=== PATIENT | female | born 1970 | race Caucasian/White ===

== ENCOUNTER 2023-12-09 08:10 | Emergency (ER) | payer OTHER, SELFPAY ==
--- NOTE | ~2023-12-09 | XR_ITS ---
EXAMINATION: XR TIBIA AND FIBULA, RIGHT CLINICAL INFORMATION: Right lower leg injury and pain. COMPARISON: None available. TECHNIQUE: AP and lateral views of the right tibia and fibula were obtained. FINDINGS: There is normal alignment. No displaced fracture or dislocation. Joint spaces are maintained. Mild swelling of the anterior soft tissues. XR/XR tibia fibula RT 2V IMPRESSION: No acute bony abnormality.
[2023-12-09 08:23] VITALS: BP 143/98; PULSE 113; RESP 18; TEMP 36.4; O2SAT 98; BMI 51.6
--- NOTE | 2023-12-09 09:48 | ED_ITS ---
HPI - General Adult General Chief complaint: Wound/Laceration Stated complaint: R Baez Lac Fall 12/09/23 Time Seen by Provider: 12/09/23 09:47 Source: patient Mode of arrival: ambulatory Limitations: no limitations History of Present Illness HPI narrative: Patient is a 53 year old assigned female at with a history of HTN presenting to the emergency department today with a right lower leg injury. Patient states that she slipped helping her mother and hit her right leg on a metal pole. Patient denies any head strike or loss of consciousness. Patient states that she does not know her last tetanus shot. Patient denies any dizziness, lightheadedness, abdominal pain, nausea, vomiting, fever, chills, blurry vision, double vision, loss of vision, chest pain, difficulty breathing, shortness of breath, back pain, night sweats, pain with urination, increased urinary frequency, increased urinary urgency, blood in her urine or stool, syncope or a near syncopal episode, bowel incontinence, bladder incontinence, bowel retention, bladder retention, or any other complaints at this time. Onset (ago): minute(s) Location: right and lower extremity Severity: mild Severity scale (1-10): 3 Pain Consistency: constant Relieving factors: none Exacerbating factors: none Associated symptoms: denies other symptoms Treatments prior to arrival: none Related Data Previous Rx's ?Medication ?Instructions ?Recorded cephalexin 500 mg capsule 500 mg PO Q6H 7 days #28 caps 12/09/23 Allergies Allergy/AdvReac Type Severity Reaction Status Date / Time No Known Allergies Allergy Verified 12/09/23 08:26 Review of Systems 2 Constitutional: Constitutional: Reports no additional constitutional complaints, Denies chills, Denies fever(s) and Denies night sweats Eyes: Eyes: Reports no additional eye complaints, Denies blurry vision, Denies change in vision, Denies diplopia, Denies eye discharge, Denies loss of vision and Denies eye pain ENT: Denies dizziness Cardiovascular: Cardiovascular: Reports no additional cardiovascular complaints, Denies chest pain, Denies lightheadedness, Denies Loss of Consciousness and Denies dyspnea Respiratory: Respiratory: Reports no additional respiratory complaints and Denies dyspnea Gastrointestinal: Gastrointestinal: Reports no additional gastrointestinal complaints, Denies abdominal pain, Denies melena, Denies hematochezia, Denies change in bowel habits and Denies change in stool character Genitourinary: Genitourinary: Denies hematuria, Denies urinary frequency, Denies dysuria, Denies urinary incontinence, Denies urinary hesitancy and Denies urinary urgency Musculoskeletal: Musculoskeletal: Reports no additional musculoskeletal complaints, Denies numbness and Denies tingling Comments: right lower leg laceration Neurologic: Denies dizziness, Denies loss of vision, Denies numbness and Denies tingling Psychiatric: Psychiatric: Reports no additional psychiatric complaints Endocrine: Endocrine: Reports no additional endocrine complaints Hematologic/Lymphatic: Hematologic/Lymphatic: Reports no additional hematologic/lymphatic complaints Allergic/Immunologic: Allergic/Immunologic: Reports no additional allergic/immunologic complaints [facility] Past Medical History Attestation statement: The following information was validated with the patient. Source: old records reviewed and nursing notes reviewed Social History Social History Smoked in Last 30 Days: No Use of substances other than those prescribed or required for medical reasons: Yes Substance Use Type: Marijuana Substance Use Frequency: Occasionally Advance Directives: No Advance Directives Information Provided: No Physical Exam ED Vital Signs: Vital Signs - 24 hr 12/09/23 08:23 12/09/23 12:24 Temperature 97.6 F 97.6 F Pulse Rate 113 H 113 H Respiratory Rate 18 18 Blood Pressure 143/98 H 143/98 H Pulse Oximetry 98 98 Oxygen Delivery Method Room Air BMI result Body Mass Index 51.6 Const General: cooperative, no acute distress, alert and awake Nutritional Appearance: well nourished Orientation/consciousness: patient oriented x3 Limitations: no limitations [facility] Head: Yes normal to inspection and Yes atraumatic Ears: hearing grossly normal bilaterally and external ears normal General nose exam: Normal external nose present, no nasal discharge noted and no epistaxis Face and sinus: Yes normal facial exam, No abrasion and No laceration Mouth: Normal oral and palatal mucosa present, no drooling and no muffled voice Eyes General: appearance normal, both eyes and all related structures Periorbital: periorbital findings normal Eyelids: Yes eyelids normal Conjunctivae: conjunctivae normal Pupils: Equal, round and reactive pupils present EOM: EOMs intact bilaterally Neck Neck: Yes normal visual inspection, Yes full ROM and Yes no lymphadenopathy Chest Chest palpation & inspection: normal inspection of the chest Resp Effort & Inspection: normal respiratory effort and able to speak in complete sentences GI Inspection: Yes normal to inspection Neuro General: patient oriented x3 and moves all extremities Cranial nerves: Yes Equal, round and reactive pupils present Cognition (Neuro): normal cognition Motor exam (neuro): 5/5 motor strength present throughout Sensory Exam: Normal double simultaneous stimulation for sensation Coordination: [id number] test normal Extrem General: Yes full ROM and Yes capillary refill normal Upper/lower leg/hip images: 2 1. 8cm gaping laceration with no active bleeding Psych Appearance: grossly normal Mental Status: mental status grossly normal Affect: normal affect Attitude: cooperative Thought process: Normal thought process present Thought content: Normal thought content present Insight: Good insight present (Psych) Medications Administered Discontinued Medications Generic Name Dose Route Start Last Admin Trade Name Freq PRN Reason Stop Dose Admin Diphtheria/Tetanus/Acell Pertussis 0.5 ml 12/09/23 09:48 12/09/23 10:01 Diphth,Pertus(Acell),Tet Adult 0.5 Ml Syringe IM 12/09/23 09:49 0.5 ml .ONCE ONE Administration Lidocaine HCl 15 ml 12/09/23 09:56 12/09/23 11:54 Lidocaine Hcl 1 % Mpf 5 Ml Vial SUBCUT 12/09/23 09:57 15 ml ONCE ONE Administration Procedures Laceration Laceration 1: Site: lower extremity Side (If applicable): right Size (cm): 8 Description: irregular Local Anesthetic: lidocaine 1% Amount of anesthesia used (mL): 15 Pre-repair: wound explored, irrigated extensively and deep structures intact Skin layer closed with: other (prolene) Size (cm): 4-0 Number of sutures: 13 Technique: simple, interrupted Subcutaneous layer closed with: vicryl Size: 5-0 Number of sutures: 4 Technique: simple, interrupted Medical Decision Making Medical Decision Making MDM Narrative: Patient is a 53 year old assigned female at with a history of HTN presenting to the emergency department today with right lower leg pain. Patient's physical exam was as noted in the physical exam portion of this note. Patient's right lower leg x-ray showed no acute process. I explained my physical exam findings as well as all test results to the patient. I answered all questions asked by the patient. Patient was brought up to date on tetanus status and laceration was repaired, without incident. I stressed the importance of the patient taking her medication as prescribed. I stressed the importance of the patient following up with her primary care provider. I stressed the importance of the patient returning to the emergency department immediately if her symptoms were to worsen or if she were to develop any dizziness, shortness of breath, difficulty breathing, chest pain, blurry vision, loss of vision, nausea, vomiting, abdominal pain, fever, chills, back pain, or any other complaints. Patient verbalized agreement and understanding with this treatment plan and discharge. Differential Diagnosis Differential Diagnoses: The differential diagnosis associated with the presentation includes Laceration Abrasion Tibia fracture Fibula fracture Admission/Observation Consideration of admission/observation: Escalation of care including admission/observation considered Right lower leg laceration Laceration Leg injury Abrasion Independent Interpretation I performed an independent interpretation of an: Plain X-Ray Interpretation: My interpretation is in agreement with the radiologist's impression of this imaging study. - EXAMINATION: XR TIBIA AND FIBULA, RIGHT CLINICAL INFORMATION: Right lower leg injury and pain. COMPARISON: None available. TECHNIQUE: AP and lateral views of the right tibia and fibula were obtained. FINDINGS: There is normal alignment. No displaced fracture or dislocation. Joint spaces are maintained. Mild swelling of the anterior soft tissues. XR/XR tibia fibula RT 2V IMPRESSION: No acute bony abnormality. Dictated By: Chas Stapleton MD Signed By: Electronically signed by Chas Stapleton MD 12/09/23 1072 Radiology Impression Discussion of test interpretation with radiology: I have reviewed the radiologist's reading. Prescription Management I considered prescription management with: Antibiotic (given the mechanism of injury - patient prescribed prophylactic antibiotic.) Chronic Conditions Patient?s care impacted by: Hypertension Critical Care Time Critical Care Time Critical Care Time: Yes Total Critical Care Time: 68 Attestation: I spent 68 minutes of Critical Care Time with this patient. This does not include time spent on separately reported billable procedures. Discharge Plan Discharge Clinical Impression: Laceration Patient Disposition: Home, Self-Care Instructions: Care For Your Stitches (DC) Additional Instructions: Take your antibiotic as prescribed. Make sure to eat with the antibiotic and supplementing with a probiotic. Have your sutures removed in 7-10 days (you have a total of 13 external sutures). The internal sutures will dissolve on their own. Perform daily wound checks and dressing changes. Do NOT soak the affected area. Follow up with your primary care provider. Return to the emergency department immediately if your symptoms worsen or if you develop any dizziness, shortness of breath, difficulty breathing, chest pain, blurry vision, loss of vision, nausea, vomiting, abdominal pain, fever, chills, back pain, or any other complaints. Prescriptions: New cephalexin 500 mg capsule 500 mg PO Q6H 7 Days Qty: 28 0RF Referrals: [facility] [place] Family Medicine [Provider Group] (Call to establish and follow up with a primary care provider. If you already have a primary care provider, please follow up with them.) [facility] [place] [facility] [Provider Group] [facility] [place] [facility] [Provider Group] Stand Alone Forms: Work/School Release Interventions: ED Discharge Assessment Last Done: 12/09/23 12:24 Discharge Date/Time: 12/09/23 12:24 Print Language: Sami
[2023-12-09] MEDS: Diphth,Pertus(ACell),Tet Adult 0.5 ML SYRINGE IM (10:01)
[2023-12-09] MEDS: Lidocaine HCl 1 % MPF 5 ML VIAL 15 ML SUBCUT (11:54)
[2023-12-09 12:24] VITALS: BP 143/98; PULSE 113; RESP 18; TEMP 36.4; O2SAT 98
== END 2023-12-09 12:24 | disposition home or self-care (01) ==
PROVIDERS: Emergency Provider Emergency Medicine
DX: S81.811A Laceration without foreign body, right lower leg, initial encounter (principal); S80.811A Abrasion, right lower leg, initial encounter; W01.10XA Fall on same level from slipping, tripping and stumbling with subsequent striking against unspecified object, initial encounter; Y93.9 Activity, unspecified; Y92.480 Sidewalk as the place of occurrence of the external cause; Y99.8 Other external cause status; Z23 Encounter for immunization
CPT/HCPCS: 12034; 73590; 90471; 90715; 99284

== ENCOUNTER 2025-04-07 08:55 | Outpatient (AMB) | payer OTHER, SELFPAY ==
[2025-04-07 09:00] VITALS: BP 128/76; PULSE 83; BMI 52.3
--- NOTE | 2025-04-07 09:00 | A.OFFVIS_ITS ---
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 She is a 54-year-old female who presented to the emergency room at [facility] recently because of retrosternal chest discomfort which she describes as sharp pain. Patient says she has been having increasing off these symptoms that recent past. She has lot of stress taking care of her elderly mom who is not doing well and also doing a full-time job. Patient says this has led to significant stress in her life. She also complains of neck discomfort on the right side with the numbness on the right arm and sometimes right leg. She is concerned about these symptoms related to cardiac issues. Her father at age 50 with a sudden myocardial infarction. One of her brother has also premature coronary artery disease and she is concerned about the same. She has prior history of hypertension which now currently on lisinopril 40 mg which was increased recently and she has been more regular about her CPAP treatment and he at least gets 5 hours of sleep at night. She says since then her blood pressure has been better controlled. I do not have her lipid panel but she said that her lipids were told to be within okay limits. She denies any lightheadedness, syncope. Does have exertional shortness of breath but she thinks this is related to her weight. She is now focus more on pursuing more aggressive lifestyle modification. She had EKG performed at [facility] which showed both inferior [place] as well as poor R-wave progression, she is quite concerned about it. She does not recall ever having prior myocardial events [facility] Medical History (Updated 04/07/25 @ 09:35 by Gerardo Damon MD) Family history of premature coronary artery disease Morbid obesity Obstructive sleep apnea HTN (hypertension) Surgical History Cholecystotomy with removal of foreign body from gallbladder performed Family History Father CAD (coronary artery disease) Mother Mitral and aortic heart valve diseases, unspecified Social History Substance Use Type: Marijuana Review of Systems Const Denies chills, Denies daytime sleepiness, Reports fatigue, Denies fever(s), Denies frequent falls, Denies poor appetite, Denies snoring, Denies stops breathing during sleep, Denies weakness, Denies weight gain and Denies weight loss Eyes Denies loss of vision ENT Denies dizziness and Denies hearing loss Card Reports chest pain, Denies claudication, Denies leg edema, Reports lightheadedness, Reports palpitations, Denies dyspnea, Reports dyspnea on exertion and Reports orthopnea Resp Denies cough, Denies excessive phlegm production, Denies dyspnea, Reports dyspnea on exertion, Denies snoring and Denies wheezing GI Reports abdominal pain, Denies hematochezia, Denies change in bowel habits, Denies nausea and Denies vomiting Denies urinary frequency and Denies dysuria Musc Reports arthralgias, Denies muscle weakness and Reports numbness Skin/Breast Denies nail changes and Denies rash Neuro Denies Abnormal speech present, Denies dizziness, Denies frequent falls, Denies loss of vision, Denies memory loss, Reports numbness and Denies weakness Psych Denies depression and Denies memory loss Endo Reports fatigue and Reports palpitations Alejandro/Lymph Reports easy bruising and Reports other (anemia) Aller/Immun Denies wheezing Physical Exam Vital Signs: Last Vital Signs Pulse 83 04/07/25 09:00 BP 128/76 04/07/25 09:00 BMI result Body Mass Index 52.3 Const General: cooperative, comfortable, no acute distress, alert, awake, anxious and well groomed Nutritional Appearance: obese morbidly obese Orientation/consciousness: patient oriented x3 Limitations: no limitations HEENT Head: Yes normocephalic and Yes atraumatic Neck Neck: Yes trachea midline, Yes supple and Yes no JVD Resp Effort & Inspection: normal respiratory effort Auscultation: clear to auscultation bilaterally Cardio Jugular venous distension: no JVD Rate: regular rate Rhythm: regular rhythm Heart sounds: S1 normal heart sound present, S2 normal heart sound present, no click, no gallops and no murmurs GI Auscultation: normal bowel sounds Skin General skin exam: no rashes or lesions noted Neuro General: patient oriented x3 and no focal motor deficits Speech: No Abnormal speech present Extrem General: Yes no clubbing, cyanosis or edema Psych Appearance: grossly normal Assessment & Plan Assessment & Plan (1) Atypical chest pain: Code(s): R07.89 - Other chest pain Category: Medical Plan: Patient with multiple risk factors presents with atypical chest pain could be associated with her current increased stress level and could represent muscular tightness although she has significant risk factors including hypertension, premature coronary artery disease as well as obesity. Underlying structural heart disease needs to be ruled out given her abnormal EKG which most likely is possibly related to a body habitus. Would suggest exercise myocardial perfusion imaging to assess for myocardial ischemia. Will also suggest an echocardiogram to evaluate LV structure and function to evaluate for wall motion abnormality as well as left ventricular hypertrophy as well as evaluate for pulmonary hypertension. These tests will be scheduled in near future. Further treatment based on the findings. If these tests are within reasonably normal limits I would suggest further screening test for her with the help of a coronary calcium score. This was discussed with her. She understands and agrees and wants to pursue this management plan. No further pharmacotherapy is recommended at this point in time. Her right neck pain and I have numbness in his right arm and left leg more likely suggestive of cervical spine issues and advised her to follow that with your office (2) HTN (hypertension): Code(s): I10 - Essential (primary) hypertension Category: Medical Plan: Hypertension which is currently optimized on high dose lisinopril therapy. She has been participate in more regular lifestyle modification with better diet and reduce caffeine intake but also using a CPAP regularly. Taking medications regularly. She is very motivated and managing her risk factors. Importance of controlling blood pressure was discussed with her. She understands agrees. Goal blood pressure less than 130/84. Advise low-salt diet and gradually reduction her caffeine intake. Continue CPAP therapy aggressively. In the long run we discussed that her weight has a significant comorbidity for her and she is very motivated to participate in weight loss program. She has been referred to weight management clinic and I would pursue that. Will follow up in the clinic in 6 weeks time after above-mentioned test. Thank you for allowing me to partake in her care Medications: Discontinued cephalexin Discontinued Reason: Patient no longer taking 500 mg PO Q6H 7 days 28 caps 0RF Coding Level of Care Code New Pt Level 4 (45806) Complex EM visit Add On G2211 Diagnoses Atypical chest pain R07.89 HTN (hypertension) I10
--- OUTSIDE RECORDS SUMMARY | 2025-04-07 09:30 | XMS_ITS | Clinical Summary ---
Author Organization [facility] Address [facility] [address] [place], [place] [id number] Phone Care Team Providers Care Massage Coordinator Name Role Phone Randy Lopez MD Primary Care Provider Allergies No known active allergies Medications norethindrone-et hinyl estradiol-iron (LO LOESTRIN FE 08/12) 1 mg-10 mcg Tab Take 1 tablet by mouth daily. Active lisinopril (PRINIVIL,ZESTRI L) 20 MG tablet Take 20 mg by mouth daily. Active Social History Tobacco Use Types Packs/Day Years Used Date Smoking Tobacco: Never Assessed Education Answer Date Recorded Are you interested in more education? Not on myra e 08/25/2024 Are you concerned about learning? Not on file 08/25/2024 No 08/25/2024 No 08/25/2024 Digital Access Answer Date Recorded No 08/25/2024 No 08/25/2024 Reliable internet access at home? Not on file 08/25/2024 Device with a working camera? Not on file Comments Unknown Sex and Gender Information Value Date Recorded Sex Assigned at Female 08/25/2024 9:47 AM EST Legal Sex Female 3:56 PM EDT Gender Identity Female 08/25/2024 9:13 AM EST Sexual Orientation Don't know 08/25/2024 9: 13 AM EST Last Filed Vital Signs Vital Sign Reading Time Taken Comments Blood Pressure 150/93 08/25/2024 10:50 AM EST Pulse 84 08/25/2024 10:50 AM EST Temperature 36.4 C (97.5 F) 08/25/2024 10:50 AM EST Respiratory Rate 16 08/25/2024 10:50 AM EST Oxygen Saturation 100% 08/25/2024 10:50 AM EST Inhaled Oxygen Concentration - - Weight 150.1 kg (331 lb) 08/25/2024 9:44 AM EST Height 167.6 cm (5' 6 ) 08/25/2024 9:44 AM EST Body Mass Index 53.42 08/25/2024 9:44 AM EST Plan of Treatment Health Maintenance Due Date Last Done Comments CREATININE LEVEL 1972 POTASSIUM LEVEL 1972 DEPRESSION SCREENING 1984 SMOKING Hx and SMOKELESS TOBACCO SCREENING 1985 HEPATITIS C SCREENING 1990 HIV ONE-TIME SCREENING (18-6 5 YEARS) 1990 PAP SMEAR 1993 SCREENING FOR DIABETES 2007 MAMMOGRAM 2012 COLOGUARD 2017 COLONOSCOPY 2017 COLORECTAL CANCER SCREENING 2017 FIT TEST 2017 FOBT 2017 SIGMOIDOSCOPY 2017 VIRTUAL COLONOSCOPY 2017 Adult Td,Tdap Booster 10/20/2018 10/20/2008 PNEUMOCOCCAL VACCINES (50+ years) (1 of 1 - PCV) 2022 ZOSTER VACCINES (1 of 2) 2022 INFLUENZA VACCINE (#1) 2025 1, 08/12/2019 COVID-19 VACCINE (2 - 2024-2 6 season) 2025 11/21/2020 LIPID PANEL 06/14/2029 06/14/2024 HEPATITIS A VACCINES Aged Out No long er eligible based on patient's age to complete this topic HIB VACCINES Aged Out No longer eligi ble based on patient's age to complete this topic MENINGOCOCCAL VACCINES (ACWY) Aged Out No longer eligible based on patient's age to complete this topic MENINGOCOCCAL VACCINES (B) Aged Out N o longer eligible based on patient's age to complete this topic Medical Devices Not on file Insurance [address] [place] [address] [facility] [address] [place] [address] [facility] [address] [place] [address] [facility] Care Teams Massage Coordinator Relationship Specialty Start Date End Date Randy Lopez MD [address] [place] [address] PCP - General Internal Medicine 02/01/19 Additional Source Comments The information contained in this document represents components of the legal health record. It is not the complete legal health record.[facility]
--- OUTSIDE RECORDS SUMMARY | 2025-04-07 09:30 | XMS_ITS | Encounter Summary ---
Author Organization [facility] Address [address] [facility] [address] [place] [address] Phone Care Team Providers Care Labor Economics Teacher Name Role Phone Randy Lopez MD Primary Care Provider [phone] Encounter Details Date Type Department Care Team (Late st Contact Info) Description 08/22/2021 Documentation Only [facility] [address] [facility] [address] [place] [id number] Juan Carlos Hernandez, DO [address] [place] [id number] Social History Tobacco Use Types Packs/Day Years Used Date Smoking Tobacco: Never Smokeless Tobacco: Never Alcohol Use Standard Drinks/Week Comments Yes 0 (1 standard drink = 0.6 oz pur e alcohol) 1-2 per wk Comments Unknown Sex and Gender Information Value Date Recorded Sex Assigned at Not on file Legal Sex Female 12:46 PM EDT Gender Identity Not on file Sexual Orientation Not on file COVID-19 Exposure Response Date Recorded In the last month, have you been in contact with someone who was confirmed or suspected to have Coronavirus / COVID-19? No / Unsure 08/21/2021 8:37 AM EST documented as of this encounter Plan of Treatment Not on file documented as of this encounter Visit Diagnoses Not on filedocumented in this encounter Care Teams Labor Economics Teacher Relationship Specialty Start Date End Date Randy Lopez MD PCP - General Internal Medicine 05/10/21 documented as of this encounter
--- OUTSIDE RECORDS SUMMARY | 2025-04-07 09:31 | XMS_ITS | Clinical Summary ---
Author Organization 175 [facility] Address [address] [place] [address] Phone Care Team Providers Care Osteologist Name Role Phone Karen Graves MD Primary Care Provider [phone] Allergies No known active allergies Medications diclofenac (VOLTAREN) 1 % topical gel Apply 4 g topically 2 times daily. 3 Active nystatin (MYCOSTATIN) ointment Apply to groin rash 2-3 times a day for 1 weeks 2 Active diphenhydrAMIN E (BENADRYL) 25 mg tablet Take 25 mg by mouth daily. Active UNABLE TO FIND CPAP Historical (HISTORICAL CPAP) Inhale into the lungs. Life supply-pressure 4-20 Active triamcinolone (KENALOG) 0.1 % cream Apply topically 2 (two) times a day. 30 g 2 4 025 Active ergocalciferol (VITAMIN D-2) 1,250 mcg (50,000 unit) capsule Take 1 capsule (50,000 Units total) by mouth 1 (one) time per week. 4 capsule 11 4 025 Active sodium,potassi um,mag sulfates (Suprep Bowel Prep Kit) 17.5-3.13-1.6 gram recon soln bowel prep kit oral solution Take 177ML by mouth for 2 doses. SEE INSTRUCTIONS PROVIDED BY OFFICE. 1 kit 5 Active cyclobenzaprin e (FLEXERIL) 5 mg tablet Take 1 tablet (5 mg total) by mouth 3 (three) times a day if needed for muscle spasms. 30 tablet 2 5 026 Active lisinopril (PRINIVIL,ZEST RIL) 40 mg tablet Take 1 tablet (40 mg total) by mouth 1 (one) time each day. 30 each 5 5 026 Active sulfamethoxazo le-trimethopri m (BACTRIM DS,SEPTRA DS) 800-160 mg per tablet TAKE 1 TABLET BY MOUTH EVERY 12 HOURS FOR 7 DAYS 4 025 Discontin ued(Thera py completed ) lisinopriL (PRINIVIL,ZEST RIL) 30 mg tablet Take 1 tablet (30 mg total) by mouth 1 (one) time each day. TAKE 1 TABLET BY MOUTH EVERY DAY 90 tablet 1 5 025 Discontin ued(Dose adjustmen t) Active Problems Problem Noted Date Diagnosed Date Primary hypertension 08/18/2023 Hyperlipidemia 03/21/2021 Elevated blood pressure reading 03/15/2021 Abnormal uterine bleeding (AUB) 04/10/2020 Overview (05/05/2024): Last Assessment & Plan: Discussed that the progesterone only pill is not effective in regulating menstrual cycles. May also be entering perimenopause which can affect cycles. Offered combined OCP to regulate cycles, however patient uncertain and would like time to think about it. Follow-up US ordered for AUB and hx of ovarian cyst. Obstructive sleep apnea 09/06/2016 Overview (05/05/2024): Home Polysomnogram: Date 08/30/2016; AHI 32, Unclassified apneas 3; Obstructive apneas 3; Central apneas 0; Mixed apneas 0; hypopneas 219; average oxygen saturation 93% (lowest 83% without saturations <88% for 5% or more of study) Chronic cholecystitis with calculus 05/15/2016 Fibroids 02/17/2014 Ovarian cyst 10/22/2012 Morbid obesity (CMS/[facility] V24, CMS/[facility] V28) 2011 Allergic rhinitis 03/19/2006 Encounters Date Type Department Care Team Description 03/30/2025 Telephone Internal Medicine [address] [place] [phone] Karen Graves MD 03/30/2025 Telephone [facility] [address] [facility] [address] [place] [phone] Karen Graves MD 03/29/2025 1:30 PM EDT Office Visit Internal Medicine [facility] [address] [facility] [address] [place] [address] Karen Graves MD Chest pain, unspecified type (Primary Dx); Elevated blood pressure reading; Primary hypertension; Morbid obesity (CMS/HCC V24, CMS/HCC V28); Mixed hyperlipidemia; Neck pain 03/20/2025 Telephone Internal Medicine [facility] [address] [facility] [address] [place] [phone] Demi Duran RN 03/20/2025 Telephone Internal Medicine [facility] [address] [facility] [address] [place] [address] Karen Graves MD from Last 3 Months Immunizations Name Administration Dates Next Due Influenza Quadravalent, MDCK , 0.5ml, preservative free (Flucelvax) 6mo and older 04/16/2023,09/20/2020,08/12/2019 Influenza trivalent, with pr eservative (Fluzone; Afluria) 6mo and older 08/07/2022 Influenza, Unspecified 09/20/2020 Moderna SARS-CoV-2 COVID-19, mRNA, LNP-S, preservative free 04/03/2024,06/12/2023,08/07/2022 Td Tetanus diptheria (Tdvax) 7yo and older 12/08 Tdap Tetanus diptheria acell ular pertussis (Boostrix; Adacel) 7yo and older 09/15/2022,10/20/2008 Zoster recombinant (Shingrix ) 19yo and older 10/03/2023,06/12/2023 Surgical History Surgery Date Site/Laterality Comments CHOLECYSTECTOMY 2017 PROCEDURE: HISTORICAL CHOLECYSTECTOMY Medical History Medical History Date Comments Dysmenorrhea DX:Dysmenorrhea Morbid obesity (CMS/HCC V24, [facility] V28) DX:Morbid obesity (HCC) Gallstones 04/16/2016 DX:Gallstones Primary hypertension 08/18/2023 Obstructive sleep apnea 09/06/2016 Home Caleb ysomnogram: Date 08/30/2016; AHI 32, Unclassified apneas 3; Obstructive apneas 3; Central apneas 0; Mixed apneas 0; hypopneas 219; average oxygen saturation 93% (lowest 83% without saturations <88% for 5% or more of study) Family History Medical History Relation Name Comments Diabetes Brother 1 Hypertension Brother 1 Hypertension Brother 2 Hyperlipidemia Brother 3 Heart attack Father age 50 cadiac Colon cancer Maternal Grandfather Arthritis Mother Other: atrial fib Mother Breast cancer Other p aunt 58ish Paunt and cous in Other: pancreatic cancer Paternal Grandmother Hypertension Sister Ovarian cancer Neg Hx Uterine cancer Neg Hx Relation Name Status Comments Brother 1 Brother 2 Brother 3 Father at 50s due to defective mitral valve Maternal Grandfather Mother Alive arthritis, dive rticulitis, Other p aunt 58ish Paternal Grandmother Sister Social History Tobacco Use Types Packs/Day Years Used Date Smoking Tobacco: Never Smokeless Tobacco: Never Tobacco Cessation:Counseling Given: Not Answered Alcohol Use Standard Drinks/Week Comments Yes 0.8 (1 standard drink = 0.6 oz p ure alcohol) occ Housing Instability Answer Date Recorde d Are you worried that in the next 2 months you may not have stable housing? No 03/28/2025 Food Access & Nutrition Answer Date Rec orded Do you have access to a vari ety of food including fruits and vegetables? Yes 03/28/2025 Access to Healthcare Answer Date Record ed Within the last 3 months, ho w many times did you visit the emergency department for your medical care? 0 03/28/2025 Health Literacy Answer Date Recorded How often do you need to hav e someone help you when you read instructions, pamphlets, or other written material from your doctor or pharmacy? Never 03/28/2025 Caregiver: How often do you need to have someone help you when you read instructions, pamphlets, or other written material from your doctor or pharmacy? Not on file 03/28/2025 Financial Risk Answer Date Recorded How hard is it for you to pa y for the very basics like food, housing, medical care, and air conditioning / heating? Not very hard 03/28/2025 Transportation Answer Date Recorded Has the lack of transportati on kept you from meetings, work, or from getting things needed for daily living? No Has the lack of transportati on kept you from medical appointments or from getting medications? No 03/28/2025 Social Isolation Answer Date Recorded How often do you feel lonely or isolated from th ose around you? Never 03/28/2025 Food Risk Answer Date Recorded Within the past 12 months we worried whether our food would run out before we got money to buy more. Never true 03/28/2025 Within the past 12 months th e food we bought just didn't last and we didn't have money to get more. Never true 03/28/2025 Dependent Care Answer Date Recorded Do you need help finding or paying for care for your loved ones. For example, child adolescent psychiatrist or elderly care for an older adult? Yes 03/28/2025 Education Answer Date Recorded Do you think completing more education or training, like finishing a GED, going to college, or learning a trade, would be helpful for you? No 03/28/2025 Employment and Income Answer Date Recor ded During the last four weeks, have you been actively looking for work? No 03/28/2025 Living Situation Answer Date Recorded What is your living situation? 0 03/28/2025 Interpersonal Safety Answer Date Record ed Physical Abuse 11/08/2024 Verbal Abuse 11/08/2024 Comments No Sex and Gender Information Value Date Recorded Sex Assigned at Female 11/08/2024 8:11 AM EDT Legal Sex Female 11:09 AM EST Gender Identity Female 11/08/2024 8:11 AM EDT Sexual Orientation Straight 11/08/2024 8: 11 AM EDT Obstetrics History Para Term AB IAB SAB Ectopic Multiple Livin g Live Births 0 0 0 0 0 0 0 0 Last Filed Vital Signs Vital Sign Reading Time Taken Comments Blood Pressure 143/92 03/29/2025 1:52 PM EDT Pulse 96 03/29/2025 1:22 PM EDT Temperature 36.2 C (97.1 F) 03/29/2025 1:22 PM EDT Respiratory Rate 18 11/08/2024 10:26 AM EDT Oxygen Saturation 99% 03/29/2025 1:22 PM EDT Inhaled Oxygen Concentration - - Weight 149 kg (328 lb) 03/29/2025 1:22 PM EDT Height 166.4 cm (5' 5.5 ) 11/24/2024 10:43 AM ED T Body Mass Index 53.75 11/24/2024 10:43 AM EDT Plan of Treatment Upcoming Encounters Date Type Department Care Team (Late st Contact Info) Description 10/26/2025 9:30 AM EDT Office Visit Bariatric Surgery - [place] [address] [address] [place] [address] Melanie Lu PA [facility] [place] [address] Health Maintenance Due Date Last Done Comments Hepatitis B Vaccines (1 of 3 - 19+ 3-dose series) 1991 Pneumococcal Vaccine: 50+ Years (1 of 1 - PCV) 2022 HIV Screening 07/12/2022 COVID-19 Vaccine ( season) 2025 04/03/2024, 06/12/2023, 08/07/2022, Additional history exists Influenza Vaccine (#1) 2025 , 04/16/2023, 08/07/2022, Additional history exists Hypertension/CHF/CAD Annual BMP Blood Test 06/14/2025 06/14/2024, 04/16/2023 Cervical Cancer Screening: HPV 03/01/2026 03/01/2021 Social Influencers of Health Screening 03/28/2026 03/28/2025 Breast Cancer Screening 12/01/2026 12/02/19 25, 11/20/2023, 11/12/2022, Additional history exists Colorectal Cancer Screening: Colonoscopy 11/09/2027 11/08/2024 Cholesterol Screening (Lipid Panel) 06/14/2029 06/14/2024, 09/15/2022 DTaP,Tdap,and Td Vaccines (4 - Td or Tdap) 12/08/2033 12/09/2023, 12/09/2023, 09/15/2022, Additional history exists Hepatitis C Screening Completed 09/15/2022 Zoster Vaccines Completed 10/03/2023, 06/12/2023 Depression Screening Completed 03/28/2025, 07/02/20 HIB Vaccines Aged Out No longer eligi ble based on patient's age to complete this topic HPV Vaccines Aged Out No longer eligi ble based on patient's age to complete this topic Hepatitis A Vaccines Aged Out No long er eligible based on patient's age to complete this topic IPV Vaccines Aged Out No longer eligi ble based on patient's age to complete this topic MMR Vaccines Aged Out No longer eligi ble based on patient's age to complete this topic Meningococcal ACWY Vaccine Aged Out N o longer eligible based on patient's age to complete this topic Meningococcal B Vaccine Aged Out No l onger eligible based on patient's age to complete this topic RSV Immunization Patients Under 20 months Aged Out No longer eligible based on patient's age to complete this topic Varicella Vaccines Aged Out No longer eligible based on patient's age to complete this topic Procedures Procedure Name Priority Date/Time Associated Diagnosis Comments MG MAMMO DIGITAL SCREENING W WYATT BILAT Routine 12/01/2024 7:47 AM EDT Encounter for screening mammogram for breast cancer COLONOSCOPY Routine 11/08/2024 10:05 AM EDT Colon cancer screening COMPREHENSIVE METABOLIC PANEL Routine 06/14/2024 9:44 AM EST Encounter for annual physical exam Primary hypertension Morbid obesity (CMS/HCC V24, CMS/HCC V28) Mixed hyperlipidemia Obstructive sleep apnea Encounter for screening mammogram for malignant neoplasm of breast LIPID PANEL WITH REFLEX TO DIRECT LDL Routine 06/14/2024 9:44 AM EST Encounter for annual physical exam Primary hypertension Morbid obesity (CMS/HCC V24, CMS/HCC V28) Mixed hyperlipidemia Obstructive sleep apnea Encounter for screening mammogram for malignant neoplasm of breast DEPRESSION SCREENING Routine 07/02/2023 HEPATITIS C SCREENING Routine 09/15/2022 HPV Routine 03/01/2021 from Last 3 Months or Most Recently Relevant to Health Maintenance Results * MG Mammo Digital Screening w Wyatt bilat (12/01/2024 7:47 AM EDT) Anatomical Region Laterality Modality Breast Bilateral Mammography 12/01/2024 11:1 2 AM EDT Impressions 12/01/2024 11:15 AM EDT Benign. BI-RADS CATEGORY: 1 - NEGATIVE RECOMMENDATION: Screening bilateral mammogram is recommended in 1 year. Mammo Location: [facility], [address] [place] [address], [id number], . -------- FINAL REPORT -------- Dictated By: Clarisa Brennan Dictated Date: 12/01/2024 11:12 ET Assigned Physician: Clarisa Brennan Reviewed and Electronically Signed By: Clarisa Brennan Signed Date: 12/01/2024 11:15 ET Workstation ID: [id number] Transcribed By: Self Edit Transcribed Date: 12/01/2024 11:12 ET Narrative 12/01/2024 11:15 AM EDT CLINICAL: 54 years old, Female, routine annual exam. COMPARISON: Mammograms dating back to 08/01/2020 with most recent of 11/20/2023. TECHNIQUE: Bilateral MLO and CC views were obtained digitally with 3-D mammogram (digital breast tomosynthesis). Computer-aided detection was utilized in evaluation of this exam (CAD). FINDINGS: There is no evidence of suspicious mass or architectural distortion. No worrisome calcifications are evident. There has been no significant change from prior exam(s). BREAST DENSITY: B - There are scattered areas of fibroglandular density. Procedure Note Clarisa Brennan MD - 12/01/2024 CLINICAL: 54 years old, Female, routine annual exam. COMPARISON: Mammograms dating back to 08/01/2020 with most recent of11/20/2023. TECHNIQUE: Bilateral MLO and CC views were obtained digitally with 3-Dmammogram (digital breast tomosynthesis). Computer-aided detection wasutilized in evaluation of this exam (CAD). FINDINGS: There is no evidence of suspicious mass or architectural distortion. Noworrisome calcifications are evident. There has been no significantchange from prior exam(s). BREAST DENSITY: B - There are scattered areas of fibroglandular density. IMPRESSION: Benign. BI-RADS CATEGORY: 1 - NEGATIVE RECOMMENDATION: Screening bilateral mammogram is recommended in 1 year. Mammo Location: [facility], [address] [place] [address], [id number], . -------- FINAL REPORT -------- Dictated By: Clarisa Brennan Dictated Date: 12/01/2024 11:12 ET Assigned Physician: Clarisa Brennan Reviewed and Electronically Signed By: Clarisa Brennan Signed Date: 12/01/2024 11:15 ET Workstation ID: [id number] Transcribed By: Self Edit Transcribed Date: 12/01/2024 11:12 ET us Jen VILLANUEVA IMG BI PROCEDURES Final Resu lt * COLONOSCOPY Anesthesia - MAC; [facility] ENDOSCOPY (11/08/2024 10:05 AM EDT) Anatomical Region Laterality Modality Endoscopy 11/08/2024 9:36 AM EDT Impressions 11/08/2024 10:06 AM EDT - One 4 mm polyp in the cecum, removed with a cold snare. Resected and retrieved. - One 14 mm polyp in the transverse colon, removed using injection-lift and a hot snare. Resected and retrieved. Clips (MR conditional) were placed. Clip collections professional: Starvine. - Three 2 to 5 mm polyps in the sigmoid colon, removed with a cold snare. Resected and retrieved. - Internal hemorrhoids. - The examination was otherwise normal. Recommendation: - Discharge patient to home. - Await pathology results. - Repeat colonoscopy in 3 years for surveillance. Narrative 11/08/2024 10:06 AM EDT [facility] GI Patient Name: Denis Mock Procedure Date: 11/08/2024 9:36 AM Date of : 1970 Age: 54 Gender: Female Note Status: Finalized Attending MD: Esteban Ulloa MD, Procedure Date No Time: 11/08/2024 Procedure: Colonoscopy Indications: Screening for colorectal malignant neoplasm Providers: Esteban Ulloa MD Referring MD: Esteban Ulloa MD Medicines: Monitored Anesthesia Care Complications: No immediate complications. Estimated blood loss: Minimal. Estimated Blood Loss: Estimated blood loss was minimal. Procedure: Pre-Anesthesia Assessment: - Prior to the procedure, a History and Physical was performed, and patient medications and allergies were reviewed. The patient is competent. The risks and benefits of the procedure and the sedation options and risks were discussed with the patient. All questions were answered and informed consent was obtained. Patient identification and proposed procedure were verified by the physician, the nurse, the press reader and the nuclear engineering technician in the pre-procedure area in the endoscopy suite. Mental Status Examination: alert and oriented. Airway Examination: normal oropharyngeal airway and neck mobility. Respiratory Examination: clear to auscultation. CV Examination: normal. Prophylactic Antibiotics: The patient does not require prophylactic antibiotics. Prior Anticoagulants: The patient has taken no anticoagulant or antiplatelet agents. ASA Grade Assessment: III - A patient with severe systemic disease. After reviewing the risks and benefits, the patient was deemed in satisfactory condition to undergo the procedure. The anesthesia plan was to use monitored anesthesia care (MAC). Immediately prior to administration of medications, the patient was re-assessed for adequacy to receive sedatives. The heart rate, respiratory rate, oxygen saturations, blood pressure, adequacy of pulmonary ventilation, and response to care were monitored throughout the procedure. The physical status of the patient was re-assessed after the procedure. After I obtained informed consent, the scope was passed under direct vision. Throughout the procedure, the patient's blood pressure, pulse, and oxygen saturations were monitored continuously. The Colonoscope was introduced through the anus and advanced to the cecum, identified by appendiceal orifice and ileocecal valve. The colonoscopy was performed without difficulty. The patient tolerated the procedure well. The quality of the bowel preparation was excellent. Findings: The perianal and digital rectal examinations were normal. A 4 mm polyp was found in the cecum. The polyp was flat. The polyp was removed with a cold snare. Resection and retrieval were complete. Estimated blood loss was minimal. A 14 mm polyp was found in the transverse colon. The polyp was flat and mucous-capped. The polyp was removed with a saline injection-lift technique using a hot snare. Resection and retrieval were complete. To prevent bleeding after the polypectomy, two hemostatic clips were successfully placed (MR conditional). Clip collections professional: Starvine. There was no bleeding at the end of the procedure. Estimated blood loss was minimal. Three sessile polyps were found in the sigmoid colon. The polyps were 2 to 5 mm in size. These polyps were removed with a cold snare. Resection and retrieval were complete. Estimated blood loss was minimal. Internal hemorrhoids were found during retroflexion. The hemorrhoids were Grade I (internal hemorrhoids that do not prolapse) and Grade II (internal hemorrhoids that prolapse but reduce spontaneously). The exam was otherwise without abnormality. Procedure Code(s): --- Professional --- 61455, Colonoscopy, flexible; with removal of tumor(s), polyp(s), or other lesion(s) by snare technique 76905, Colonoscopy, flexible; with directed submucosal injection(s), any substance Diagnosis Code(s): --- Professional --- D12.0, Benign neoplasm of cecum D12.3, Benign neoplasm of transverse colon (hepatic flexure or splenic flexure) D12.5, Benign neoplasm of sigmoid colon CPT copyright 2020 [employer]. All rights reserved. The codes documented in this report are preliminary and upon make up man review may be revised to meet current compliance requirements. Esteban Ulloa MD 11/08/2024 10:06:45 AM This report has been signed electronically.Esteban Ulloa MD Number of Addenda: 0 Note Initiated On: 11/08/2024 9:36 AM Scope Withdrawal Time: 0 hours 16 minutes 59 seconds Scope In: 9:43:58 AM Scope Out: 10:02:39 AM Endoscopy Department at [facility] - [address] [place] [id number] Procedure Note Esteban Ulloa MD - 11/08/2024 [facility] GI Patient Name: Denis Mock Procedure Date: 11/08/2024 9:36 AM Date of : 1970 Age: 54 Gender: Female Note Status: Finalized Attending MD: Esteban Ulloa MD, Procedure Date No Time: 11/08/2024 Procedure: Colonoscopy Indications: Screening for colorectal malignant neoplasm Providers: Esteban Ulloa MD Referring MD: Esteban Ulloa MD Medicines: Monitored Anesthesia Care Complications: No immediate complications. Estimated blood loss: Minimal. Estimated Blood Loss: Estimated blood loss was minimal. Procedure: Pre-Anesthesia Assessment: - Prior to the procedure, a History and Physicalwas performed, and patient medications and allergieswere reviewed. The patient is competent. The risks and benefits of the procedure and the sedation optionsand risks were discussed with the patient. Allquestions were answered and informed consent was obtained. Patient identification and proposed procedure were verified by the physician, the nurse, theanesthetist and the nuclear engineering technician in the pre-procedure area in the endoscopy suite. Mental Status Examination: alertand oriented. Airway Examination: normal oropharyngeal airway and neck mobility. Respiratory Examination: clear to auscultation. CV Examination: normal. Prophylactic Antibiotics: The patient does notrequire prophylactic antibiotics. Prior Anticoagulants: The patient has taken no anticoagulant or antiplatelet agents. ASA Grade Assessment: III - A patient with severe systemic disease. After reviewing the risksand benefits, the patient was deemed in satisfactory condition to undergo the procedure. The anesthesia plan was to use monitored anesthesia care (MAC). Immediately prior to administration of medications, the patient was re-assessed for adequacy to receive sedatives. The heart rate, respiratory rate, oxygen saturations, blood pressure, adequacy of pulmonary ventilation, and response to care were monitored throughout the procedure. The physical status ofthe patient was re-assessed after the procedure. After I obtained informed consent, the scope was passed under direct vision. Throughout theprocedure, the patient's blood pressure, pulse, and oxygen saturations were monitored continuously. The Colonoscope was introduced through the anus and advanced to the cecum, identified by appendiceal orifice and ileocecal valve. The colonoscopy was performed without difficulty. The patient tolerated the procedure well. The quality of the bowel preparation was excellent. Findings: The perianal and digital rectal examinations were normal. A 4 mm polyp was found in the cecum. The polyp was flat. The polyp was removed with a cold snare. Resection and retrieval were complete. Estimatedblood loss was minimal. A 14 mm polyp was found in the transverse colon.The polyp was flat and mucous-capped. The polyp was removed with a saline injection-lift techniqueusing a hot snare. Resection and retrieval were complete.To prevent bleeding after the polypectomy, twohemostatic clips were successfully placed (MR conditional).Clip collections professional: Starvine. There was nobleeding at the end of the procedure. Estimated blood losswas minimal. Three sessile polyps were found in the sigmoidcolon. The polyps were 2 to 5 mm in size. These polypswere removed with a cold snare. Resection and retrieval were complete. Estimated blood loss was minimal. Internal hemorrhoids were found duringretroflexion. The hemorrhoids were Grade I (internal hemorrhoids that do not prolapse) and Grade II (internal hemorrhoids that prolapse but reducespontaneously). The exam was otherwise without abnormality. Procedure Code(s): --- Professional --- 42732, Colonoscopy, flexible; with removal of tumor(s), polyp(s), or other lesion(s) by snare technique [id number], Colonoscopy, flexible; with directedsubmucosal injection(s), any substance Diagnosis Code(s): --- Professional --- D12.0, Benign neoplasm of cecum D12.3, Benign neoplasm of transverse colon (hepatic flexure or splenic flexure) D12.5, Benign neoplasm of sigmoid colon CPT copyright 2020 [employer]. All rights reserved. The codes documented in this report are preliminary and upon make up man reviewmay be revised to meet current compliance requirements. Esteban Ulloa MD 11/08/2024 10:06:45 AM This report has been signed electronically.Esteban Ulloa MD Number of Addenda: 0 Note Initiated On: 11/08/2024 9:36 AM Scope Withdrawal Time: 0 hours 16 minutes 59 seconds Scope In: 9:43:58 AM Scope Out: 10:02:39 AM Endoscopy Department at [facility] - [address] [place] [phone] IMPRESSION: - One 4 mm polyp in the cecum, removed with a cold snare. Resected and retrieved. - One 14 mm polyp in the transverse colon, removed using injection-lift and a hot snare. Resected and retrieved. Clips (MR conditional) were placed. Clip collections professional: [employer]. - Three 2 to 5 mm polyps in the sigmoid colon,removed with a cold snare. Resected and retrieved. - Internal hemorrhoids. - The examination was otherwise normal. Recommendation: - Discharge patient to home. - Await pathology results. - Repeat colonoscopy in 3 years for surveillance. us Esteban Ulloa MD GI~PROCEDURE ORDERABLES Fin al Result * (ABNORMAL) Lipid panel with reflex to direct LDL (06/14/2024 9:44 AM EST) Cholesterol 228(H) 0 - 200 mg/dL LAB CHEMISTRY METHOD 06/14/2024 4:15 PM EST [facility] Triglycerides 106 0 - 150 mg/dL LAB CHEMISTRY METHOD 06/14/2024 4:15 PM EST [facility] HDL 72 >=40 mg/dL LAB CHEMISTRY METHOD 06/14/2024 4:15 PM EST [facility] LDL Calculated 135(H) 0 - 100 mg/dL LAB CHEMISTRY METHOD 06/14/2024 4:15 PM EST [facility] VLDL Cholesterol Nader 21.2 mg/dL LAB CHEMISTRY METHOD 06/14/2024 4:15 PM EST [facility] Non HDL Chol. (LDL+VLDL) 156(H) <145 mg/dL LAB CHEMISTRY METHOD 06/14/2024 4:15 PM EST [facility] Chol/HDL Ratio 3.2 0.0 - 4.4 LAB CHEMISTRY METHOD 06/14/2024 4:15 PM EST [facility] Blood Venous blood specimen / Unknown Venipuncture / Unknown 06/14/2024 9:44 AM EST 06/14/2024 9:44 AM EST us Karen Graves MD LAB BLOOD ORDERABLES Final Resul t [facility] [address] [place] [address], [place] [phone] * (ABNORMAL) Comprehensive metabolic panel (06/14/2024 9:44 AM EST) Sodium 140 133 - 145 mmol/L LAB CHEMISTRY METHOD 06/14/2024 4:15 PM [facility] Potassium 4.1 3.5 - 5.5 mmol/L LAB CHEMISTRY METHOD 06/14/2024 4:15 PM [facility] Chloride 110 96 - 110 mmol/L LAB CHEMISTRY METHOD 06/14/2024 4:15 PM [facility] CO2 23 21 - 32 mmol/L LAB CHEMISTRY METHOD 06/14/2024 4:15 PM [facility] Anion Gap 7 3 - 11 LAB CHEMISTRY METHOD 06/14/2024 4:15 PM [facility] Glucose 102(H) 70 - 100 mg/dL LAB CHEMISTRY METHOD 06/14/2024 4:15 PM [facility] BUN 14 5 - 25 mg/dL LAB CHEMISTRY METHOD 06/14/2024 4:15 PM [facility] Creatinine 0.67 0.50 - 1.10 mg/dL LAB CHEMISTRY METHOD 06/14/2024 4:15 PM [facility] eGFR 105 >=60 mL/min/1. 73m2 LAB CHEMISTRY METHOD 06/14/2024 4:15 PM [facility] Comment:Calculation based on the Chronic Kidney Disease Epidemiology Collaboration (CKD-EPI) equation refit without adjustment for race. BUN/Creatinine Ratio 20.9 LAB CHEMISTRY METHOD 06/14/2024 4:15 PM [facility] Calcium 9.5 8.5 - 10.5 mg/dL LAB CHEMISTRY METHOD 06/14/2024 4:15 PM [facility] AST (SGOT) 30 10 - 42 unit/L LAB CHEMISTRY METHOD 06/14/2024 4:15 PM [facility] ALT (SGPT) 50 10 - 60 unit/L LAB CHEMISTRY METHOD 06/14/2024 4:15 PM [facility] Alkaline Phosphatase 81 42 - 121 unit/L LAB CHEMISTRY METHOD 06/14/2024 4:15 PM [facility] Total Protein 7.3 6.0 - 8.0 g/dL LAB CHEMISTRY METHOD 06/14/2024 4:15 PM EST [facility] Albumin 4.1 3.2 - 5.0 g/dL LAB CHEMISTRY METHOD 06/14/2024 4:15 PM EST [facility] Total Bilirubin 0.5 0.0 - 1.4 mg/dL LAB CHEMISTRY METHOD 06/14/2024 4:15 PM EST [facility] Blood Venous blood specimen / Unknown Venipuncture / Unknown 06/14/2024 9:44 AM EST 06/14/2024 9:44 AM EST Karen Graves MD LAB BLOOD ORDERABLES Final Resul t [facility] [address] [place] [address], * Depression Screening (07/02/2023) Pathologist [facility] Depression Screening Abstracted Historical Provider HEALTH MAINTENANCE Final Result * Hepatitis C Screening (09/15/2022) [facility] Hepatitis C Screening Abstracted Historical Provider HEALTH MAINTENANCE Final Result * Cervical Cancer Screening: HPV (03/01/2021) [facility] Cervical Cancer Screening: HPV Negative, Abstracted Historical Provider HEALTH MAINTENANCE Final Result from Last 3 Months or Most Recently Relevant to Health Maintenance Insurance [facility] PUBLIC PLANS Care Teams Osteologist Relationship Specialty Start Date End Date Karen Graves MD [address] [place] [phone] PCP - General Internal Medicine 06/08/24
--- OUTSIDE RECORDS SUMMARY | 2025-04-07 09:31 | XMS_ITS | Clinical Summary ---
Author Organization [facility] Facility Address [address] [address] Care Team Providers Care Towel Folder Name Role Phone Randy Lopez MD Primary Care Provider [phone] Allergies No known active allergies Medications Norethin-Eth Estrad-Fe Biphas 1 MG-10 MCG / 10 MCG tablet Take 1 tablet by mouth daily Active diphenhydrAMINE (Benadryl Allergy) 25 MG tablet Take 25 mg by mouth every 6 (six) hours if needed for itching Active ibuprofen (ADVIL,MOTRIN) 200 MG tablet Take 200 mg by mouth every 6 (six) hours if needed for mild pain Active Active Problems No known active problems Family History Medical History Relation Comments Arthritis Mother Diverticulitis Mother Relation Status Comments Father Mother Alive Social History Tobacco Use Types Packs/Day Years [...] on file Sexual Orientation Not on file Last Filed Vital Signs Vital Sign Reading Time Taken Comments Blood Pressure 138/90 05/23/2021 9:23 AM EDT Pulse 72 05/23/2021 9:23 AM EDT Temperature - - Respiratory Rate - - Oxygen Saturation 96% 05/23/2021 9:23 AM EDT Inhaled Oxygen Concentration - - Weight 115 kg (253 lb) 05/23/2021 9:23 AM EDT Height 166.4 cm (5' 5.5 ) 05/23/2021 9:23 AM EDT Body Mass Index 41.46 05/23/2021 9:23 AM EDT Plan of Treatment Health Maintenance Due Date Last Done Comments Breast Cancer Screening 1970 Hepatitis B Vaccine (1 of 3 - 19+ 3-dose series) 05/03 Colorectal Cancer Screening: Annual FOBT 2021 Colorectal Cancer Screening: Colonoscopy 2021 Colorectal Cancer Screening: Sigmoidoscopy 2021 Pneumococcal Vaccine: 50+ Years (1 of 1 - PCV) 022 Influenza Vaccine (#1) 2025 Insurance Care Teams Towel Folder Relationship Specialty Start Date End Date Randy Lopez MD PCP - General Internal Medicine 05/10/21
--- OUTSIDE RECORDS SUMMARY | 2025-04-07 09:31 | XMS_ITS ---
Author Name [facility] Organization Unknown Care Team Organization Name Specialty Phone Email Start Date End Da te [facility] Alexis Jones DO Primary Care 10/08/202203/03 [facility] Aixa Taylor Primary Care 06/10/20222023
== END 2025-04-07 09:32 | disposition home or self-care (01) ==
PROVIDERS: Visit Provider Internal Medicine Cardiovascular Disease
DX: R07.89 Other chest pain (principal); I10 Essential (primary) hypertension
CPT/HCPCS: 99204

== ENCOUNTER → 2025-04-07 08:55 | Outpatient (BNVA) | payer OTHER, SELFPAY | PROVIDERS: Visit Provider Internal Medicine Cardiovascular Disease | DX: R07.89 Other chest pain (principal); I10 Essential (primary) hypertension; R94.31 Abnormal electrocardiogram [ECG] [EKG] | CPT/HCPCS: 99202 ==

== ENCOUNTER → 2025-05-05 08:55 | Outpatient (REF) | payer OTHER, SELFPAY ==
--- NOTE | 2025-05-05 08:57 | CA_ITS ---
Transthoracic Echocardiogram Patient (Last, First, Middle): Marcela Mock R Gender: F Date of : 1970 Age: 55 Procedure Date: 05/05/2025 Procedure Type: Transthoracic Echocardiogram Location: OP Height: 167. cm Weight: 145.15 kg BSA: 2.44 m2 Heart Rate: 73 bpm BP: 145 / 85 mmHg Associate Software Engineer: VALERIO Referring MD: Gerardo Damon MD Symptoms: R07.89 - Other chest pain Study Quality: Fair ECG Rhythm: Sinus Conclusions: - The left ventricular systolic function is normal. The calculated ejection fraction is 62% by biplane method. - No obvious valvular pathology seen on this study. Findings Left Ventricle Normal left ventricular cavity size. There is normal left ventricular wall thickness. The left ventricular systolic function is normal. The calculated ejection fraction is 62% by biplane method. There is no evidence of regional wall motion abnormalities. Diastolic function is normal for age. Right Ventricle Normal right ventricular cavity size and systolic function. Atria Both atria are normal in size. Aortic Valve There is a normal trileaflet aortic valve. There is no aortic valve stenosis. There is no aortic valve regurgitation. Mitral Valve The mitral valve appears normal. There is no mitral valve regurgitation. There is no mitral valve stenosis. Pulmonic Valve The pulmonic valve is likely normal. Tricuspid Valve There is trace tricuspid valve regurgitation. There is no evidence of pulmonary hypertension. Great Vessels The asc aorta is normal in size. Venous The inferior vena cava is normal in size and collapses greater than 50% with inspiration. Pericardium/Pleural There is no evidence of pericardial effusion. Prior Study Comparison No prior study available for comparison. Recommendations, Care & Conclusions No obvious valvular pathology seen on this study. Measurements 2D Linear Measurements IVSd: 0.92 0.6-0.9/0.6-1.0 cm LVIDd: 5.26 3.9-5.3/4.2-5.9 cm LVIDd Index: 2.16 2.4-3.2/2.2-3.1 cm/m2 LVIDs: 2.85 2.0-3.6 cm LVPWd: 0.96 0.7-1.1 cm LA Diam: 4.10 2.7-3.8/3.0-4.0 cm LAIDs Index: 1.68 1.5-2.3 cm/m2 LV Mass: 226.72 67-162/88-224 g LV Mass Index: 92.92 43-95/49-115 g/m2 LVOT Diam: 2.00 3.0+(-)1.3 cm 2D Systolic Function EF 4C: 55.60 >55% EF 2C: 68.20 >55% EF BiP: 61.70 >55% Mitral Valve MV Pk E: 1.07 MV PK A: 1.07 MV Decel Time: 294.00 E/A: 1.00 E'Lateral: 9.90 E'Medial: 9.36 E/E' Med: 11.40 E/E' Lat: 10.80 PHT: 86.00 MVA PHT: 2.56 Decel Winston: 3.65 Aortic Valve AoV Pk Darian: 1.35 AoV Mn Darian: 0.96 AoV VTI: 0.31 AoV Pk Grad: 7.00 Aov Mn Grad: 4.00 DANIEL Cont.VTI: 2.84 LVOT LVOT Pk Darian: 1.13 LVOT Mn Darian: 0.83 LVOT VTI: 0.28 LVOT Pk Grad: 5.00 LVOT Mn Grad: 3.00 LVOT Diam: 2.00 LVOT Area: 3.14 Diastolic Function MV Pk E: 1.07 MV Pk A: 1.07 E/A: 1.00 E'Medial: 9.36 E/E' Med: 11.40 E' Laterial: 9.90 E/E' Lat: 10.80 Right Ventricle TAPSE (mm): 28.00 TVS' Darian: 11.40 Tricuspid Valve TR Pk Darian: 1.71 TR Pk Grad: 12.00 RA Press: 3.00 RVSP: 15.00 Great Vessels Aorta Sinus of Valsalva: 3.30 2.0-3.5 cm Ao Asc: 3.40 2.1-3.4 cm Ao Arch: 3.00 Pulmonary Veins Pulm Vein S/D 1.40 Pulmonary Valve PV Pk Darian: 1.03 Peak PV Grad: 4.00 Updated in Other Vendor System with Status of Final Vish Monreal MD electronically signed on 05/07/2025 2:22:59 PM with status of Final
--- OUTSIDE RECORDS SUMMARY | 2025-05-05 09:21 | XMS_ITS | Clinical Summary ---
Author Organization [facility] Address [address] [place] [address] Phone Care Team Providers Care Parliamentary Counsel Name Role Phone Karen Graves MD Primary Care Provider [phone] Allergies No known active allergies Medications diclofenac (VOLTAREN) 1 % topical gel Apply 4 g topically 2 times daily. 3 Active nystatin (MYCOSTATIN) ointment Apply to groin rash 2-3 times a day for 1 weeks 2 Active diphenhydrAMINE (BENADRYL) 25 mg tablet Take 25 mg by mouth daily. Active UNABLE TO FIND CPAP Historical (HISTORICAL CPAP) Inhale into the lungs. Life supply-pressure 4-20 Active triamcinolone (KENALOG) 0.1 % cream Apply topically 2 (two) times a day. 30 g 2 4 06/09/20 25 Active ergocalciferol (VITAMIN D-2) 1,250 mcg (50,000 unit) capsule Take 1 capsule (50,000 Units total) by mouth 1 (one) time per week. 4 capsule 11 4 06/15/20 25 Active sodium,potassiu m,mag sulfates (Suprep Bowel Prep Kit) 17.5-3.13-1.6 gram recon soln bowel prep kit oral solution Take 177ML by mouth for 2 doses. SEE INSTRUCTIONS PROVIDED BY OFFICE. 1 kit 5 Active cyclobenzaprine (FLEXERIL) 5 mg tablet Take 1 tablet (5 mg total) by mouth 3 (three) times a day if needed for muscle spasms. 30 tablet 2 5 11/25/19 26 Active lisinopril (PRINIVIL,ZESTR IL) 40 mg tablet Take 1 tablet (40 mg total) by mouth 1 (one) time each day. 30 each 5 5 09/25/19 26 Active Active Problems Problem Noted Date Diagnosed Date [...] Fibroids 02/17/2014 Ovarian cyst 10/22/2012 Morbid obesity (CMS/[facility] V24, CMS/[facility] V28) 2011 Allergic rhinitis 03/19/2006 Encounters Date Type Department Care Team Description 03/30/2025 Telephone Internal Medicine - [place] [address] [facility] [address] [place] [address] Karen Graves MD 03/30/[address] [facility] [address] [place] [address] Karen Graves MD 03/29/2025 1:30 PM EDT Office Visit Internal Medicine - [place] [address] [place] [address] Karen Graves MD Chest pain, unspecified type (Primary Dx); Elevated blood pressure reading; Primary hypertension; Morbid obesity ([facility] V24, [facility] V28); Mixed hyperlipidemia; Neck pain 03/20/2025 Telephone Internal Medicine [facility] [address] [phone] Demi Duran RN 03/20/2025 Telephone Internal Medicine [facility] [address] [phone] Karen Graves MD from Last 3 Months Immunizations Immunization Administration Dates Next Due Influenza Quadravalent, MDCK [...] History Date Comments Dysmenorrhea DX:Dysmenorrhea Morbid obesity (CMS/[facility] V24, CMS/[facility] V28) DX:Morbid obesity ([facility]) Gallstones 04/16/2016 DX:Gallstones Primary hypertension 08/18/2023 Obstructive [...] for your loved ones. For example, child nutrition assistant or elderly care for an older adult? [...] Date Recorded What is your living situation? Unrecognized valu e 03/28/2025 Interpersonal Safety Answer Date Record ed Physical Abuse Unrecognized value 11/08/2024 Verbal Abuse Unrecognized value 11/08/2024 Comments No Sex and Gender Information [...] AM EDT Office Visit Bariatric Surgery - [address] [place] [address] Melanie Lu PA [address] [place] [address] Health Maintenance Due Date Last [...] 12/08/2033 12/09/2023, 12/09/2023, 09/15/2022, Additional history exists RSV Immunization Adult Patients (1 - 1-dose 75+ series) 2047 Hepatitis C Screening Completed 09/15/2022 Zoster Vaccines Completed 10/03/2023, 06/12/2023 Depression Screening Completed 03/28/2025, 07/02/20 23 HIB Vaccines Aged Out No longer eligi [...] Procedure Name Priority Date/Time Associated Diagnosis Comments ECG 12-LEAD Routine 04/21/2025 9:07 AM EDT Chest pain, unspecified type MG MAMMO DIGITAL SCREENING W WYATT BILAT [...] Recently Relevant to Health Maintenance Results * ECG 12 lead (04/21/2025 9:07 AM EDT) Karen Graves MD ECG ORDERABLES Final Result * MG Mammo Digital Screening w Wyatt bilat (12/01/2024 7:47 AM EDT) Anatomical Region Laterality Modality Breast Bilateral Mammography 12/01/2024 11:1 2 AM EDT Impressions 12/01/2024 11:15 AM EDT Benign. BI-RADS CATEGORY: 1 - NEGATIVE RECOMMENDATION: Screening bilateral mammogram is recommended in 1 year. Mammo Location: [facility], [address] [place] [address], [phone], . -------- FINAL REPORT -------- Dictated By: Clarisa Brennan Dictated Date: 12/01/2024 11:12 ET Assigned Physician: Clarisa Brennan Reviewed and Electronically Signed By: Clarisa Brennan Signed Date: 12/01/2024 11:15 ET Workstation ID: [id number] Transcribed By: Self Edit Transcribed Date: 12/01/2024 [...] is recommended in 1 year. Mammo Location: [facility], [address] [place] [address], [phone], . -------- FINAL REPORT -------- Dictated By: Clarisa Brennan Dictated Date: 12/01/2024 11:12 ET Assigned Physician: Clarisa Brennan Reviewed and Electronically Signed By: Clarisa Brennan Signed Date: 12/01/2024 11:15 ET Workstation ID: [id number] Transcribed By: Self Edit Transcribed Date: 12/01/2024 11:12 ET Jen VILLANUEVA IMG BI PROCEDURES Final Resu lt * COLONOSCOPY Anesthesia - MAC; [facility] ENDOSCOPY (11/08/2024 10:05 AM EDT) Anatomical Region Laterality Modality Endoscopy 11/08/2024 9:36 AM EDT Impressions 11/08/2024 10:06 AM EDT - One 4 mm polyp in the cecum, removed with a cold snare. Resected and retrieved. - One 14 mm polyp in the transverse colon, removed using injection-lift and a hot snare. Resected and retrieved. Clips (MR conditional) were placed. Clip eeg tech: [employer]. - Three 2 to 5 mm polyps in the sigmoid colon, removed with a cold snare. Resected and retrieved. - Internal hemorrhoids. - The examination was otherwise normal. Recommendation: - Discharge patient to home. - Await pathology results. - Repeat colonoscopy in 3 years for surveillance. Narrative 11/08/2024 10:06 AM EDT [facility] Patient Name: Denis Mock Procedure Date: [...] verified by the physician, the nurse, the subsea engineer and the install and repair technician in the pre-procedure area in the [...] clips were successfully placed (MR conditional). Clip eeg tech: [employer]. There was no bleeding at the end [...] without abnormality. Procedure Code(s): --- Professional --- 60973, Colonoscopy, flexible; with removal of tumor(s), polyp(s), or other lesion(s) by snare technique [id number], Colonoscopy, flexible; with directed submucosal injection(s), any substance Diagnosis Code(s): --- Professional --- D12.0, Benign neoplasm of cecum D12.3, Benign neoplasm of transverse colon (hepatic flexure or splenic flexure) D12.5, Benign neoplasm of sigmoid colon CPT copyright 2020 [employer]. All rights reserved. The codes documented in this report are preliminary and upon fur tailor review may be revised to meet current compliance requirements. Esteban Ulloa MD 11/08/2024 10:06:45 AM This report has been signed electronically.Esteban Ulloa MD Number of Addenda: 0 Note Initiated On: 11/08/2024 9:36 AM Scope Withdrawal Time: 0 hours 16 minutes 59 seconds Scope In: 9:43:58 AM Scope Out: 10:02:39 AM Endoscopy Department at [facility] - [address] [place] [phone] Procedure Note Esteban Ulloa MD - 11/08/2024 [facility] Patient Name: Denis Mock Procedure Date: [...] the physician, the nurse, theanesthetist and the install and repair technician in the pre-procedure area in the [...] twohemostatic clips were successfully placed (MR conditional).Clip eeg tech: [employer]. There was nobleeding at the end of [...] without abnormality. Procedure Code(s): --- Professional --- 83941, Colonoscopy, flexible; with removal of tumor(s), polyp(s), or other lesion(s) by snare technique [id number], Colonoscopy, flexible; with directedsubmucosal injection(s), any substance Diagnosis Code(s): --- Professional --- D12.0, Benign neoplasm of cecum D12.3, Benign neoplasm of transverse colon (hepatic flexure or splenic flexure) D12.5, Benign neoplasm of sigmoid colon CPT copyright 2020 [employer]. All rights reserved. The codes documented in this report are preliminary and upon fur tailor reviewmay be revised to meet current compliance requirements. Esteban Ulloa MD 11/08/2024 10:06:45 AM This report has been signed electronically.Esteban Ulloa MD Number of Addenda: 0 Note Initiated On: 11/08/2024 9:36 AM Scope Withdrawal Time: 0 hours 16 minutes 59 seconds Scope In: 9:43:58 AM Scope Out: 10:02:39 AM Endoscopy Department at [facility] - [address] [place] [phone] IMPRESSION: - One 4 mm polyp in the cecum, removed with a cold snare. Resected and retrieved. - One 14 mm polyp in the transverse colon, removed using injection-lift and a hot snare. Resected and retrieved. Clips (MR conditional) were placed. Clip eeg tech: [employer]. - Three 2 to 5 mm polyps [...] LAB CHEMISTRY METHOD 06/14/2024 4:15 PM EST [facility] Triglycerides 106 0 - 150 mg/dL LAB CHEMISTRY METHOD 06/14/2024 4:15 PM EST [facility] HDL 72 >=40 mg/dL LAB CHEMISTRY METHOD 06/14/2024 4:15 PM EST [facility] LDL Calculated 135(H) 0 - 100 mg/dL LAB CHEMISTRY METHOD 06/14/2024 4:15 PM EST [facility] VLDL Cholesterol Nader 21.2 mg/dL LAB CHEMISTRY METHOD 06/14/2024 4:15 PM EST [facility] Non HDL Chol. (LDL+VLDL) 156(H) <145 mg/dL LAB CHEMISTRY METHOD 06/14/2024 4:15 PM EST [facility] Chol/HDL Ratio 3.2 0.0 - 4.4 LAB CHEMISTRY METHOD 06/14/2024 4:15 PM EST [facility] Blood Venous blood specimen / Unknown Venipuncture / Unknown 06/14/2024 9:44 AM EST 06/14/2024 9:44 AM EST us Karen Graves MD LAB BLOOD ORDERABLES Final Resul t [facility] [address] [place] [address], [place] [phone] * (ABNORMAL) Comprehensive metabolic panel (06/14/2024 9:44 AM EST) Sodium 140 133 - 145 mmol/L LAB CHEMISTRY METHOD 06/14/2024 4:15 PM EST [facility] Potassium 4.1 3.5 - 5.5 mmol/L LAB CHEMISTRY METHOD 06/14/2024 4:15 PM [facility] Chloride 110 96 - 110 mmol/L LAB CHEMISTRY METHOD 06/14/2024 4:15 PM [facility] CO2 23 21 - 32 mmol/L LAB CHEMISTRY METHOD 06/14/2024 4:15 PM [facility] Anion Gap 7 3 - 11 LAB CHEMISTRY METHOD 06/14/2024 4:15 PM [facility] Glucose 102(H) 70 - 100 mg/dL LAB CHEMISTRY METHOD 06/14/2024 4:15 PM [facility] BUN 14 5 - 25 mg/dL LAB CHEMISTRY METHOD 06/14/2024 4:15 PM [facility] Creatinine 0.67 0.50 - 1.10 mg/dL LAB CHEMISTRY METHOD 06/14/2024 4:15 PM [facility] eGFR 105 >=60 mL/min/1. 73m2 LAB CHEMISTRY METHOD 06/14/2024 4:15 PM [facility] Comment:Calculation based on the Chronic Kidney Disease Epidemiology Collaboration (CKD-EPI) equation refit without adjustment for race. BUN/Creatinine Ratio 20.9 LAB CHEMISTRY METHOD 06/14/2024 4:15 PM [facility] Calcium 9.5 8.5 - 10.5 mg/dL LAB CHEMISTRY METHOD 06/14/2024 4:15 PM [facility] AST (SGOT) 30 10 - 42 unit/L LAB CHEMISTRY METHOD 06/14/2024 4:15 PM [facility] ALT (SGPT) 50 10 - 60 unit/L LAB CHEMISTRY METHOD 06/14/2024 4:15 PM [facility] Alkaline Phosphatase 81 42 - 121 unit/L LAB CHEMISTRY METHOD 06/14/2024 4:15 PM [facility] Total Protein 7.3 6.0 - 8.0 g/dL LAB CHEMISTRY METHOD 06/14/2024 4:15 PM EST [facility] Albumin 4.1 3.2 - 5.0 g/dL LAB CHEMISTRY METHOD 06/14/2024 4:15 PM EST [facility] Total Bilirubin 0.5 0.0 - 1.4 mg/dL LAB CHEMISTRY METHOD 06/14/2024 4:15 PM EST [facility] Blood Venous blood specimen / Unknown Venipuncture / Unknown 06/14/2024 9:44 AM EST 06/14/2024 9:44 AM EST Karen Graves MD LAB BLOOD ORDERABLES Final Resul t [facility] [address] [place] [address], * Depression Screening (07/02/2023) Pathologist [facility] [place] Depression Screening Abstracted Historical Provider HEALTH MAINTENANCE Final Result * Hepatitis C Screening (09/15/2022) [facility] Hepatitis C Screening Abstracted Historical Provider HEALTH MAINTENANCE Final Result * Cervical Cancer Screening: HPV (03/01/2021) [facility] Cervical Cancer Screening: HPV Negative, Abstracted Historical Provider HEALTH MAINTENANCE Final Result from Last 3 Months or Most Recently Relevant to Health Maintenance Insurance [facility] [employer] Care Teams Parliamentary Counsel Relationship Specialty Start Date End Date Karen Graves MD [address] [place] [phone] PCP - General Internal Medicine 06/08/24
--- OUTSIDE RECORDS SUMMARY | 2025-05-05 09:21 | XMS_ITS | Encounter Summary ---
Author Organization [facility] Address [address] [facility] [address] [place] [address] Phone Care Team Providers Care Secretary Office Clerk Name Role Phone Randy Lopez MD Primary Care Provider [phone] Encounter Details Date Type Department Care Team (Late st Contact Info) Description 08/22/2021 Documentation Only [facility] [address] [facility] [address] [place] [phone] Juan Carlos Hernandez, DO [address] [place] [address] Social History Tobacco Use Types Packs/Day Years [...] on filedocumented in this encounter Care Teams Secretary Office Clerk Relationship Specialty Start Date End Date Randy Lopez MD PCP - General Internal Medicine 05/10/21 documented as of this encounter
--- OUTSIDE RECORDS SUMMARY | 2025-05-05 09:21 | XMS_ITS | Clinical Summary ---
Author Organization [facility] Address Formerly [facility] [address] [place], [place] [id number] Phone Care Team Providers Care Cherry Picker Operator Name Role Phone Randy Lopez MD Primary Care Provider [phone] Allergies No known active allergies Medications norethindrone-et [...] topic Medical Devices Not on file [place] [address] [address] [facility] [facility] [place] [address] [place] [address] [facility] [place] [address] [address] [facility] Care Teams Cherry Picker Operator Relationship Specialty Start Date End Date Randy Lopez MD [address] [place] [address] PCP - General Internal Medicine 02/01/19 Additional Source Comments The information contained in this document represents components of the legal health record. It is not the complete legal health record.Formerly [facility]
--- OUTSIDE RECORDS SUMMARY | 2025-05-05 09:21 | XMS_ITS | Clinical Summary ---
Author Organization [facility] Facility Address [address] [address] Care Team Providers Care Bottle Packer Name Role Phone Randy Lopez MD Primary Care Provider [phone] Allergies No known active allergies Medications Norethin-Eth [...] Influenza Vaccine (#1) 2025 Insurance Care Teams Bottle Packer Relationship Specialty Start Date End Date Randy Lopez MD PCP - General Internal Medicine 05/10/21
== END ==
LOC: HO.CARD 08:55
PROVIDERS: Visit Provider Internal Medicine Cardiovascular Disease
DX: R07.89 Other chest pain (principal)
CPT/HCPCS: 93306

== ENCOUNTER → 2025-05-05 08:57 | Outpatient (BNV) | payer OTHER, SELFPAY | PROVIDERS: Visit Provider Internal Medicine | DX: R07.89 Other chest pain (principal) | CPT/HCPCS: 93306 ==

== ENCOUNTER → 2025-05-25 10:02 | Outpatient (REF) | payer OTHER, SELFPAY ==
--- NOTE | ~2025-05-25 | NM_ITS ---
EXERCISE MYOCARDIAL PERFUSION STUDY INDICATION: Chest pain to evaluate for myocardial ischemia TECHNIQUE: The patient was brought in for an exercise perfusion study on 05/25/2025. Patient performed exercise as per Clarke protocol and was injected 45 mCi of sestamibi once target heart rate was achieved. Images were obtained using the SPECT gamma camera interlaced with the gating device. Images were obtained in supine position. Resting perfusion study was performed on 05/26/2025. Patient was administered 45 mCi of sestamibi intravenously at rest. Images were then obtained in supine position. Images obtained without without CT attenuation. Total DLP 137 mGy-cm. Images were processed with the software and compared side to side in short axis, horizontal long axis and vertical long axis views. FINDINGS: Raw images were reviewed The stress perfusion study showed nonattenuated images show mildly to moderately reduced uptake in the apical and distal lateral wall of the LV myocardium. Attenuated corrected images show some thinning of the apex and the septum of the LV myocardium.. The gated study shows normal LV systolic function with calculated LVEF of 72%. LV cavity is normal in size. The gated study shows normal systolic wall thickening and contraction of segments. Resting study shows nonattenuated images show severely reduced uptake in the apex of the LV myocardium. Attenuated corrected images show no change in perfusion pattern compared to stress. Gating at rest reveals normal systolic wall motion with ejection fraction at 76%. The findings are consistent with no clear reversible defect suggestive of ischemia. Fixed defect likely due to attenuation artifact normal underlying wall motion abnormality. NM/NM cardiolite stress test IMPRESSION: 1. Myocardial perfusion imaging study shows likely normal myocardial perfusion. 2. Gated LVEF is 72%. 3. Transient ischemic dilatation not present. EKG revealed negative for ischemia. Electronically signed by: Gerardo Damon MD 05/26/2025 02:56 PM EDT
--- NOTE | 2025-05-25 10:05 | CA_ITS ---
Acquisition Time: 2025-05-25 11:08:02 Total Exercise Time: 00:05:30 Test Indications: Abnormal ECG CP Medications: LISINOPRIL VIT D CYCLOBENZAPRINE Protocol: ALLYN Max HR: 166 BPM 99% of Pred: 167 BPM Max BP: 148/88 mmHG Max Work Load: 6.1 METS Exercise stress test with exercise 5 mins 30 secs of Bruec Protocol at reduced speed of 2.0 mph, achieving 99% MPHR, with reports of SOB, no chest pain, without any arrythmias, with normotensive response to exercise. Without any EKG changes meeting criteria for ischemia. In recovery, breathing imporved to baseline. Nuclear images pending. Test reviewed with Dr. Damon. Referred By: Gerardo Damon Electronically Signed By: Thong Dorsey
--- OUTSIDE RECORDS SUMMARY | 2025-05-25 11:45 | XMS_ITS | Clinical Summary ---
Author Organization [facility] Facility Address [address] [address] Care Team Providers Care Research Laboratory Manager Name Role Phone Randy Lopez MD Primary Care Provider [phone] Allergies No known active allergies Medications Norethin-Eth [...] Influenza Vaccine (#1) 2025 Insurance Care Teams Research Laboratory Manager Relationship Specialty Start Date End Date Randy Lopez MD PCP - General Internal Medicine 05/10/21
--- OUTSIDE RECORDS SUMMARY | 2025-05-25 11:45 | XMS_ITS | Clinical Summary ---
Author Organization [address] [facility] Address [address] [place] [address] Phone Care Team Providers Care Bag Checker Name Role Phone Karen Graves MD Primary Care Provider [phone] Allergies No known active allergies Medications diclofenac [...] Fibroids 02/17/2014 Ovarian cyst 10/22/2012 Morbid obesity (CMS/[facility] V24, CMS/[facility] V28) 2011 Allergic rhinitis 03/19/2006 Encounters Date Type Department Care Team Description 03/30/2025 Telephone Internal Medicine - [place] [address] [facility] [address] [place] [address] Karen Graves MD 03/30/2025 Telephone [facility] [address] [facility] [address] [place] [address] Karen Graves MD 03/29/2025 1:30 PM EDT Office Visit Internal Medicine - [place] [address] [facility] [address] [place] [address] Karen Graves MD Chest pain, unspecified type (Primary Dx); Elevated blood pressure reading; Primary hypertension; Morbid obesity ([facility] V24, [facility] V28); Mixed hyperlipidemia; Neck pain 03/20/2025 Telephone Internal Medicine [facility] [address] [address] Demi Duran RN 03/20/2025 Telephone Internal Medicine [facility] [address] [address] Karen Graves MD from Last [...] History Date Comments Dysmenorrhea DX:Dysmenorrhea Morbid obesity (CMS/[facility] V24, CMS/[facility] V28) DX:Morbid obesity ([facility]) Gallstones 04/16/2016 DX:Gallstones Primary hypertension 08/18/2023 Obstructive [...] for your loved ones. For example, child abuse worker or elderly care for an older adult? [...] Contact Info) Description 10/26/2025 9:30 AM EDT Consult Bariatric Surgery - [address] [place] [address] Melanie Lu PA [address] [place] [address] Health Maintenance Due Date Last Done Comments Hepatitis B Vaccines (1 of 3 - 19+ 3-dose series) 1991 Pneumococcal Vaccine: 50+ Years (1 of 1 - PCV) 2022 RSV Immunization Adult Patients (1 - Risk 50-74 years 1-dose series) 2022 HIV Screening 07/12/2022 COVID-19 Vaccine ( [...] is recommended in 1 year. Mammo Location: [facility], [address] [place] [address], [address], . -------- FINAL REPORT -------- Dictated By: Clarisa Brennan Dictated Date: 12/01/2024 11:12 ET Assigned Physician: Clarisa Brennan Reviewed and Electronically Signed By: Clarisa Brennan Signed Date: 12/01/2024 11:15 ET Workstation ID: [id number] Transcribed By: Self Edit Transcribed Date: 12/01/2024 [...] is recommended in 1 year. Mammo Location: [facility], [address] [place] [address], [address], . -------- FINAL REPORT -------- Dictated By: Clarisa Brennan Dictated Date: 12/01/2024 11:12 ET Assigned Physician: Clarisa Brennan Reviewed and Electronically Signed By: Clarisa Brennan Signed Date: 12/01/2024 11:15 ET Workstation ID: [id number] Transcribed By: Self Edit Transcribed Date: 12/01/2024 11:12 ET Jen VILLANUEVA IMG BI PROCEDURES Final Resu lt * COLONOSCOPY Anesthesia - MAC; [facility] ENDOSCOPY (11/08/2024 10:05 AM EDT) Anatomical Region Laterality Modality Endoscopy 11/08/2024 9:36 AM EDT Impressions 11/08/2024 10:06 AM EDT - One 4 mm polyp in the cecum, removed with a cold snare. Resected and retrieved. - One 14 mm polyp in the transverse colon, removed using injection-lift and a hot snare. Resected and retrieved. Clips (MR conditional) were placed. Clip screen tacker: [employer]. - Three 2 to 5 mm polyps in the sigmoid colon, removed with a cold snare. Resected and retrieved. - Internal hemorrhoids. - The examination was otherwise normal. Recommendation: - Discharge patient to home. - Await pathology results. - Repeat colonoscopy in 3 years for surveillance. Narrative 11/08/2024 10:06 AM EDT [facility] GI Patient Name: Denis Mock [...] verified by the physician, the nurse, the felting machine operator and the mortuary technician in the pre-procedure area in the [...] clips were successfully placed (MR conditional). Clip screen tacker: [employer]. There was no bleeding at the end [...] without abnormality. Procedure Code(s): --- Professional --- 56284, Colonoscopy, flexible; with removal of tumor(s), polyp(s), or other lesion(s) by snare technique [id number], Colonoscopy, flexible; with directed submucosal injection(s), any substance Diagnosis Code(s): --- Professional --- D12.0, Benign neoplasm of cecum D12.3, Benign neoplasm of transverse colon (hepatic flexure or splenic flexure) D12.5, Benign neoplasm of sigmoid colon CPT copyright 2020 [employer]. All rights reserved. The codes documented in this report are preliminary and upon drafter structural review may be revised to meet current compliance requirements. Esteban Ulloa MD 11/08/2024 10:06:45 AM This report has been signed electronically.Etseban Ulloa MD Number of Addenda: 0 Note Initiated On: 11/08/2024 9:36 AM Scope Withdrawal Time: 0 hours 16 minutes 59 seconds Scope In: 9:43:58 AM Scope Out: 10:02:39 AM Endoscopy Department at [facility] - [address] [place] [id number] Procedure Note Esteban Ulloa MD - 11/08/2024 [facility] Patient Name: Denis Mock [...] the physician, the nurse, theanesthetist and the mortuary technician in the pre-procedure area in the [...] twohemostatic clips were successfully placed (MR conditional).Clip screen tacker: [employer]. There was nobleeding at the end of [...] without abnormality. Procedure Code(s): --- Professional --- 58690, Colonoscopy, flexible; with removal of tumor(s), polyp(s), or other lesion(s) by snare technique 64371, Colonoscopy, flexible; with directedsubmucosal injection(s), any substance Diagnosis Code(s): --- Professional --- D12.0, Benign neoplasm of cecum D12.3, Benign neoplasm of transverse colon (hepatic flexure or splenic flexure) D12.5, Benign neoplasm of sigmoid colon CPT copyright 2020 [employer]. All rights reserved. The codes documented in this report are preliminary and upon drafter structural reviewmay be revised to meet current compliance requirements. Esteban Ulloa MD 11/08/2024 10:06:45 AM This report has been signed electronically.Esteban Ulloa MD Number of Addenda: 0 Note Initiated On: 11/08/2024 9:36 AM Scope Withdrawal Time: 0 hours 16 minutes 59 seconds Scope In: 9:43:58 AM Scope Out: 10:02:39 AM Endoscopy Department at [facility] - [address] [place] [phone] IMPRESSION: - One 4 mm polyp in the cecum, removed with a cold snare. Resected and retrieved. - One 14 mm polyp in the transverse colon, removed using injection-lift and a hot snare. Resected and retrieved. Clips (MR conditional) were placed. Clip screen tacker: [employer]. - Three 2 to 5 mm polyps [...] LAB CHEMISTRY METHOD 06/14/2024 4:15 PM EST [facility] Triglycerides 106 0 - 150 mg/dL LAB CHEMISTRY METHOD 06/14/2024 4:15 PM EST [facility] HDL 72 >=40 mg/dL LAB CHEMISTRY METHOD 06/14/2024 4:15 PM EST [facility] LDL Calculated 135(H) 0 - 100 mg/dL LAB CHEMISTRY METHOD 06/14/2024 4:15 PM EST [facility] VLDL Cholesterol Nader 21.2 mg/dL LAB CHEMISTRY METHOD 06/14/2024 4:15 PM EST [facility] Non HDL Chol. (LDL+VLDL) 156(H) <145 mg/dL LAB CHEMISTRY METHOD 06/14/2024 4:15 PM EST [facility] Chol/HDL Ratio 3.2 0.0 - 4.4 LAB CHEMISTRY METHOD 06/14/2024 4:15 PM EST [facility] Blood Venous blood specimen / Unknown Venipuncture / Unknown 06/14/2024 9:44 AM EST 06/14/2024 9:44 AM EST us Karen Graves MD LAB BLOOD ORDERABLES Final Resul t [facility] [address] [place] [address], [place] [phone] * (ABNORMAL) Comprehensive metabolic panel (06/14/2024 9:44 AM EST) Sodium 140 133 - 145 mmol/L LAB CHEMISTRY METHOD 06/14/2024 4:15 PM EST [facility] Potassium 4.1 3.5 - 5.5 mmol/L LAB CHEMISTRY METHOD 06/14/2024 4:15 PM [facility] Chloride 110 96 - 110 mmol/L LAB CHEMISTRY METHOD 06/14/2024 4:15 PM [facility] CO2 23 21 - 32 mmol/L LAB CHEMISTRY METHOD 06/14/2024 4:15 PM [facility] Anion Gap 7 3 - 11 LAB CHEMISTRY METHOD 06/14/2024 4:15 PM [facility] Glucose 102(H) 70 - 100 mg/dL LAB CHEMISTRY METHOD 06/14/2024 4:15 PM [facility] BUN 14 5 - 25 mg/dL LAB CHEMISTRY METHOD 06/14/2024 4:15 PM [facility] Creatinine 0.67 0.50 - 1.10 mg/dL LAB CHEMISTRY METHOD 06/14/2024 4:15 PM [facility] eGFR 105 >=60 mL/min/1. 73m2 LAB CHEMISTRY METHOD 06/14/2024 4:15 PM [facility] Comment:Calculation based on the Chronic Kidney Disease Epidemiology Collaboration (CKD-EPI) equation refit without adjustment for race. BUN/Creatinine Ratio 20.9 LAB CHEMISTRY METHOD 06/14/2024 4:15 PM [facility] Calcium 9.5 8.5 - 10.5 mg/dL LAB CHEMISTRY METHOD 06/14/2024 4:15 PM [facility] AST (SGOT) 30 10 - 42 unit/L LAB CHEMISTRY METHOD 06/14/2024 4:15 PM [facility] ALT (SGPT) 50 10 - 60 unit/L LAB CHEMISTRY METHOD 06/14/2024 4:15 PM [facility] Alkaline Phosphatase 81 42 - 121 unit/L LAB CHEMISTRY METHOD 06/14/2024 4:15 PM [facility] Total Protein 7.3 6.0 - 8.0 g/dL LAB CHEMISTRY METHOD 06/14/2024 4:15 PM EST [facility] Albumin 4.1 3.2 - 5.0 g/dL LAB CHEMISTRY METHOD 06/14/2024 4:15 PM EST [facility] Total Bilirubin 0.5 0.0 - 1.4 mg/dL LAB CHEMISTRY METHOD 06/14/2024 4:15 PM EST [facility] Blood Venous blood specimen / Unknown Venipuncture / Unknown 06/14/2024 9:44 AM EST 06/14/2024 9:44 AM EST Karen Graves MD LAB BLOOD ORDERABLES Final Resul t [facility] [address] [place] [address], * Depression Screening (07/02/2023) Pathologist [facility] Depression Screening Abstracted Historical Provider HEALTH MAINTENANCE Final Result * Hepatitis C Screening (09/15/2022) [facility] Hepatitis C Screening Abstracted Historical Provider HEALTH MAINTENANCE Final Result * Cervical Cancer Screening: HPV (03/01/2021) [facility] Cervical Cancer Screening: HPV Negative, Abstracted Historical Provider HEALTH MAINTENANCE Final Result from Last 3 Months or Most Recently Relevant to Health Maintenance Insurance [facility] [id number] PLANS Care Teams Bag Checker Relationship Specialty Start Date End Date Karen Graves MD [address] [place] [phone] PCP - General Internal Medicine 06/08/24
--- OUTSIDE RECORDS SUMMARY | 2025-05-25 11:45 | XMS_ITS | Encounter Summary ---
Author Organization [facility] Address [address] [facility] [address] [place] [address] Phone Care Team Providers Care Memory Care Director Name Role Phone Randy Lopez MD Primary Care Provider [phone] Encounter Details Date Type Department Care Team (Late st Contact Info) Description 08/22/2021 Documentation Only [facility] [address] [facility] [address] [place] [phone] Juan Carlos Hernandez, DO [address] [place] [address] Social History Tobacco Use Types Packs/Day Years [...] on filedocumented in this encounter Care Teams Memory Care Director Relationship Specialty Start Date End Date Randy Lopez MD PCP - General Internal Medicine 05/10/21 documented as of this encounter
== END ==
LOC: HO.CARD 10:02
PROVIDERS: Visit Provider Internal Medicine Cardiovascular Disease
DX: R07.89 Other chest pain (principal); R94.31 Abnormal electrocardiogram [ECG] [EKG]; I10 Essential (primary) hypertension
CPT/HCPCS: 78452; 93017; A9500

== ENCOUNTER → 2025-05-25 10:05 | Outpatient (BNV) | payer OTHER, SELFPAY | DX: R07.9 Chest pain, unspecified (principal) | CPT/HCPCS: 78452; 93016; 93018 ==

== ENCOUNTER 2025-06-01 08:41 | Outpatient (AMB) | payer OTHER, SELFPAY ==
[2025-06-01 08:47] VITALS: BP 132/66; PULSE 86; BMI 53.4
--- NOTE | 2025-06-01 08:47 | A.OFFVIS_ITS ---
Vital Signs 06/01/25 08:47 Height 5 ft 6 in Weight 330 lb 11.094 oz BMI 53.4 BP 132/66 Blood Pressure Location Lt brachial Position Sitting Pulse 86 Pulse Source Pulse Oximeter Intake Visit Reasons: 6wk follow up after testings Sex Crimes Detective Required: No Allergies No Known Allergies Allergy (Verified 06/01/25 08:50) Medication List - Last Reconciled 06/01/25 by Nunu Mirza, MARISOL-C cyclobenzaprine 5 mg PO TID PRN ergocalciferol (vitamin D2) 1,250 mcg PO QWEEK lisinopril 40 mg PO DAILY HPI HPI 6wk follow up after testings: Details: Marcela is a 55-year-old female past medical history of hypertension, sleep apnea with CPAP use, morbid obesity, family history of early CAD who is being evaluated for chest discomfort. She underwent a echocardiogram and nuclear stress test showing no significant abnormalities. She now presents for follow- up. Today she reports that she will get some random tightness in her chest. She has no chest discomfort brought on by physical activity. No shortness of breath, PND, orthopnea or edema. No heart palpitations, lightheadedness, presyncope, syncope, falls. She is busy throughout the day but does no routine exercise. 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 She reports med compliance. She has received the call for the coronary calcium score but has not had it done yet. [facility] Medical History (Updated 06/01/25 @ 12:50 by Nunu Mirza, MARISOL-C) Family history of premature coronary artery disease Morbid obesity Obstructive sleep apnea HTN (hypertension) Surgical History Cholecystotomy with removal of foreign body from gallbladder performed Family History Father CAD (coronary artery disease) Mother Mitral and aortic heart valve diseases, unspecified Social History Substance Use Type: Marijuana Review of Systems Const All systems reviewed & are unremarkable except as noted in HPI and below ENT Denies dizziness Card Denies chest pain, Denies chest pain at rest, Denies chest pain with activity, Denies rapid heart rate, Denies pedal edema, Denies edema, Denies leg edema, Denies lightheadedness, Denies palpitations, Denies dyspnea, Denies dyspnea on exertion and Denies orthopnea Resp Denies cough, Denies dyspnea and Denies dyspnea on exertion GI Denies hematochezia and Denies change in stool character Musc Denies abnormal gait, Denies limited range of motion, Denies muscle cramps, Denies muscle weakness, Denies numbness, Denies radiating pain into limb, Denies stiffness and Denies tingling Neuro Denies abnormal gait, Denies dizziness, Denies numbness and Denies tingling Endo Denies palpitations Physical Exam Vital Signs: Last Vital Signs Pulse 86 06/01/25 08:47 BP 132/66 06/01/25 08:47 BMI result Body Mass Index 53.4 Const General: cooperative, healthy appearing, comfortable and no acute distress Orientation/consciousness: patient oriented x3 Neck Neck: Yes normal visual inspection Resp Effort & Inspection: normal respiratory effort Auscultation: clear to auscultation bilaterally, no rales, no rhonchi and no wheezes Cardio Rate: regular rate Rhythm: regular rhythm Heart sounds: S1 normal heart sound present, S2 normal heart sound present, no gallops, no murmurs and no rubs Neuro General: patient oriented x3 Extrem General: Yes normal to inspection, No no pedal edema and No calf tenderness Psych Appearance: grossly normal Mental Status: mental status grossly normal Speech and movement: Normal speech and movement present Assessment & Plan Assessment & Plan (1) Atypical chest pain: Code(s): R07.89 - Other chest pain Category: Medical Plan: Reports of atypical chest tightness. Cardiac risk factors of hypertension, morbid obesity and family history of early CAD. Echocardiogram done 06/01/2025 showed EF 62%, no valve or regional wall motion abnormalities. Exercise stress test done 06/01/2025 showed exercise 5 minutes 30 seconds, no EKG changes and normal myocardial perfusion imaging. Coronary calcium score previously ordered however not completed by her as of yet. She will call now make an appointment. Plan to let her know once result is available. Informed her she has no obstructive coronary artery disease however nonobstructive disease not entirely ruled out. Signs and symptoms of angina reviewed with her. Risk factor modification discussed. Instructed to increase physical activity and weight loss. Cardiology follow-up 1 year, sooner if needed (2) HTN (hypertension): Code(s): I10 - Essential (primary) hypertension Category: Medical Plan: Blood pressure goal less than 130/80. Well controlled at this time. Continue lisinopril. (3) Obstructive sleep apnea: Comment: On CPAP Code(s): G47.33 - Obstructive sleep apnea (adult) (pediatric) Category: Medical Plan: History of obstructive sleep apnea, CPAP in use. She reports compliance. (4) Morbid obesity: Code(s): E66.01 - Morbid (severe) obesity due to excess calories Category: Medical Plan: Reviewed the benefits of weight loss. She states understanding and is working on it. (5) Family history of premature coronary artery disease: Code(s): Z82.49 - Family history of ischemic heart disease and other diseases of the circulatory system Category: Medical Plan: Noted Plan Time spent on chart review, documentation, interview and assessment Coding Level of Care Code Est Pt Level 4 (05266) Complex EM visit Add On G2211 Diagnoses Atypical chest pain R07.89 HTN (hypertension) I10 Obstructive sleep apnea G47.33 Morbid obesity E66.01 Family history of premature coronary artery disease Z82.49 Time Spent (min) 28
--- OUTSIDE RECORDS SUMMARY | 2025-06-01 09:30 | XMS_ITS | Clinical Summary ---
Author Organization [facility] Address [address] [place] [address] Phone Care Team Providers Care Zipper Sewing Machine Operator Name Role Phone Karen Graves MD Primary Care Provider [phone] Allergies No known active allergies Medications diclofenac [...] Fibroids 02/17/2014 Ovarian cyst 10/22/2012 Morbid obesity (CMS/[facility] V24, CMS/[facility] V28) 2011 Allergic rhinitis 03/19/2006 Encounters Date Type Department Care Team Description 03/30/2025 Telephone Internal Medicine - [place] [address] [facility] [address] [place] [address] Karen Graves MD 03/30/2025 Telephone [facility] [address] [place] [address] Karen Graves MD 03/29/2025 1:30 PM EDT Office Visit Internal Medicine - [facility] [address] [facility] [address] [place] [address] Karen Graves MD Chest pain, unspecified type (Primary Dx); Elevated blood pressure reading; Primary hypertension; Morbid obesity ([facility] V24, [facility] V28); Mixed hyperlipidemia; Neck pain 03/20/2025 Telephone Internal Medicine [facility] [address] [address] Demi Duran RN 03/20/2025 Telephone Internal Medicine [facility] [address] [address] Karen Graves MD from Last [...] History Date Comments Dysmenorrhea DX:Dysmenorrhea Morbid obesity (CMS/[facility] V24, CMS/[facility] V28) DX:Morbid obesity ([facility]) Gallstones 04/16/2016 DX:Gallstones Primary hypertension 08/18/2023 Obstructive [...] for your loved ones. For example, child custody evaluator or elderly care for an older adult? [...] 9:30 AM EDT Consult Bariatric Surgery - [address] [place] [address] Melanie Lu PA [address] [place] [address] Health Maintenance Due Date Last [...] is recommended in 1 year. Mammo Location: [facility], [address] [place] [address], [id number], . -------- FINAL REPORT -------- Dictated By: Clarisa Brennan Dictated Date: 12/01/2024 11:12 ET Assigned Physician: Clarisa Brennan Reviewed and Electronically Signed By: Clarisa Brennan Signed Date: 12/01/2024 11:15 ET Workstation ID: [id number] Transcribed By: Self Edit Transcribed Date: 12/01/2024 [...] is recommended in 1 year. Mammo Location: [facility], [address] [place] [address], [address], . -------- FINAL REPORT -------- Dictated By: Clarisa Brennan Dictated Date: 12/01/2024 11:12 ET Assigned Physician: Clarisa Brennan Reviewed and Electronically Signed By: Clarisa Brennan Signed Date: 12/01/2024 11:15 ET Workstation ID: [id number] Transcribed By: Self Edit Transcribed Date: 12/01/2024 11:12 ET Jen VILLANUEVA IMG BI PROCEDURES Final Resu lt * COLONOSCOPY Anesthesia - MAC; [facility] ENDOSCOPY (11/08/2024 10:05 AM EDT) Anatomical Region Laterality Modality Endoscopy 11/08/2024 9:36 AM EDT Impressions 11/08/2024 10:06 AM EDT - One 4 mm polyp in the cecum, removed with a cold snare. Resected and retrieved. - One 14 mm polyp in the transverse colon, removed using injection-lift and a hot snare. Resected and retrieved. Clips (MR conditional) were placed. Clip electrical contacts adjuster: [employer]. - Three 2 to 5 mm polyps in the sigmoid colon, removed with a cold snare. Resected and retrieved. - Internal hemorrhoids. - The examination was otherwise normal. Recommendation: - Discharge patient to home. - Await pathology results. - Repeat colonoscopy in 3 years for surveillance. Narrative 11/08/2024 10:[address] [facility] Patient Name: Denis Mock Procedure Date: [...] verified by the physician, the nurse, the wellness trainer and the scrub technician in the pre-procedure area in the [...] clips were successfully placed (MR conditional). Clip electrical contacts adjuster: [employer]. There was no bleeding at the end [...] without abnormality. Procedure Code(s): --- Professional --- 07935, Colonoscopy, flexible; with removal of tumor(s), polyp(s), or other lesion(s) by snare technique [id number], Colonoscopy, flexible; with directed submucosal injection(s), any substance Diagnosis Code(s): --- Professional --- D12.0, Benign neoplasm of cecum D12.3, Benign neoplasm of transverse colon (hepatic flexure or splenic flexure) D12.5, Benign neoplasm of sigmoid colon CPT copyright 2020 [employer]. All rights reserved. The codes documented in this report are preliminary and upon malt roaster review may be revised to meet current compliance requirements. Esteban Ulloa MD 11/08/2024 10:06:45 AM This report has been signed electronically.Esteban Ulloa MD Number of Addenda: 0 Note Initiated On: 11/08/2024 9:36 AM Scope Withdrawal Time: 0 hours 16 minutes 59 seconds Scope In: 9:43:58 AM Scope Out: 10:02:39 AM Endoscopy Department at [facility] - [address] [place] [id number] Procedure Note Esteban Ulloa MD - 11/08/2024 [facility] Patient Name: Denis Mock Procedure Date: [...] the physician, the nurse, theanesthetist and the scrub technician in the pre-procedure area in the [...] twohemostatic clips were successfully placed (MR conditional).Clip electrical contacts adjuster: [employer]. There was nobleeding at the end of [...] without abnormality. Procedure Code(s): --- Professional --- 79553, Colonoscopy, flexible; with removal of tumor(s), polyp(s), or other lesion(s) by snare technique [id number], Colonoscopy, flexible; with directedsubmucosal injection(s), any substance Diagnosis Code(s): --- Professional --- D12.0, Benign neoplasm of cecum D12.3, Benign neoplasm of transverse colon (hepatic flexure or splenic flexure) D12.5, Benign neoplasm of sigmoid colon CPT copyright 2020 [employer]. All rights reserved. The codes documented in this report are preliminary and upon malt roaster reviewmay be revised to meet current compliance requirements. Esteban Ulloa MD 11/08/2024 10:06:45 AM This report has been signed electronically.Esteban Ulloa MD Number of Addenda: 0 Note Initiated On: 11/08/2024 9:36 AM Scope Withdrawal Time: 0 hours 16 minutes 59 seconds Scope In: 9:43:58 AM Scope Out: 10:02:39 AM Endoscopy Department at [facility] - [address] [place] [phone] IMPRESSION: - One 4 mm polyp in the cecum, removed with a cold snare. Resected and retrieved. - One 14 mm polyp in the transverse colon, removed using injection-lift and a hot snare. Resected and retrieved. Clips (MR conditional) were placed. Clip electrical contacts adjuster: [employer]. - Three 2 to 5 mm polyps [...] LAB CHEMISTRY METHOD 06/14/2024 4:15 PM EST [facility] Triglycerides 106 0 - 150 mg/dL LAB CHEMISTRY METHOD 06/14/2024 4:15 PM EST [facility] HDL 72 >=40 mg/dL LAB CHEMISTRY METHOD 06/14/2024 4:15 PM EST [facility] LDL Calculated 135(H) 0 - 100 mg/dL LAB CHEMISTRY METHOD 06/14/2024 4:15 PM EST [facility] VLDL Cholesterol Nader 21.2 mg/dL LAB CHEMISTRY METHOD 06/14/2024 4:15 PM EST [facility] Non HDL Chol. (LDL+VLDL) 156(H) <145 mg/dL LAB CHEMISTRY METHOD 06/14/2024 4:15 PM EST [facility] Chol/HDL Ratio 3.2 0.0 - 4.4 LAB CHEMISTRY METHOD 06/14/2024 4:15 PM EST [facility] Blood Venous blood specimen / Unknown Venipuncture / Unknown 06/14/2024 9:44 AM EST 06/14/2024 9:44 AM EST us Karen Graves MD LAB BLOOD ORDERABLES Final Resul t [facility] [address] [place] [address], [place] [phone] * (ABNORMAL) Comprehensive metabolic panel (06/14/2024 9:44 AM EST) Sodium 140 133 - 145 mmol/L LAB CHEMISTRY METHOD 06/14/2024 4:15 PM EST [facility] Potassium 4.1 3.5 - 5.5 mmol/L LAB CHEMISTRY METHOD 06/14/2024 4:15 PM [facility] Chloride 110 96 - 110 mmol/L LAB CHEMISTRY METHOD 06/14/2024 4:15 PM [facility] CO2 23 21 - 32 mmol/L LAB CHEMISTRY METHOD 06/14/2024 4:15 PM [facility] Anion Gap 7 3 - 11 LAB CHEMISTRY METHOD 06/14/2024 4:15 PM [facility] Glucose 102(H) 70 - 100 mg/dL LAB CHEMISTRY METHOD 06/14/2024 4:15 PM [facility] BUN 14 5 - 25 mg/dL LAB CHEMISTRY METHOD 06/14/2024 4:15 PM [facility] Creatinine 0.67 0.50 - 1.10 mg/dL LAB CHEMISTRY METHOD 06/14/2024 4:15 PM [facility] eGFR 105 >=60 mL/min/1. 73m2 LAB CHEMISTRY METHOD 06/14/2024 4:15 PM [facility] Comment:Calculation based on the Chronic Kidney Disease Epidemiology Collaboration (CKD-EPI) equation refit without adjustment for race. BUN/Creatinine Ratio 20.9 LAB CHEMISTRY METHOD 06/14/2024 4:15 PM [facility] Calcium 9.5 8.5 - 10.5 mg/dL LAB CHEMISTRY METHOD 06/14/2024 4:15 PM [facility] AST (SGOT) 30 10 - 42 unit/L LAB CHEMISTRY METHOD 06/14/2024 4:15 PM [facility] ALT (SGPT) 50 10 - 60 unit/L LAB CHEMISTRY METHOD 06/14/2024 4:15 PM [facility] Alkaline Phosphatase 81 42 - 121 unit/L LAB CHEMISTRY METHOD 06/14/2024 4:15 PM [facility] Total Protein 7.3 6.0 - 8.0 g/dL LAB CHEMISTRY METHOD 06/14/2024 4:15 PM EST [facility] Albumin 4.1 3.2 - 5.0 g/dL LAB CHEMISTRY METHOD 06/14/2024 4:15 PM EST [facility] Total Bilirubin 0.5 0.0 - 1.4 mg/dL LAB CHEMISTRY METHOD 06/14/2024 4:15 PM EST [facility] Blood Venous blood specimen / Unknown Venipuncture / Unknown 06/14/2024 9:44 AM EST 06/14/2024 9:44 AM EST Karen Graves MD LAB BLOOD ORDERABLES Final Resul t [facility] [address] [place] [address], * Depression Screening (07/02/2023) Pathologist [facility] Depression Screening Abstracted Historical Provider HEALTH MAINTENANCE Final Result * Hepatitis C Screening (09/15/2022) [facility] Hepatitis C Screening Abstracted Historical Provider HEALTH MAINTENANCE Final Result * Cervical Cancer Screening: HPV (03/01/2021) [facility] Cervical Cancer Screening: HPV Negative, Abstracted Historical Provider HEALTH MAINTENANCE Final Result from Last 3 Months or Most Recently Relevant to Health Maintenance Insurance [facility] [employer] Care Teams Zipper Sewing Machine Operator Relationship Specialty Start Date End Date Karen Graves MD [address] [place] [address] PCP - General Internal Medicine 06/08/24
--- OUTSIDE RECORDS SUMMARY | 2025-06-01 09:30 | XMS_ITS | Encounter Summary ---
Author Organization [facility] Address [address] [facility] [address] [place] [address] Phone Care Team Providers Care Wedger Name Role Phone Randy Lopez MD Primary Care Provider [phone] Encounter Details Date Type Department Care Team (Late st Contact Info) Description 08/22/2021 Documentation Only [facility] [address] [facility] [address] [place] [id number] Juan Carlos Hernandez, DO [address] [place] [phone] Social History Tobacco Use Types Packs/Day Years [...] on filedocumented in this encounter Care Teams Wedger Relationship Specialty Start Date End Date Randy Lopez MD PCP - General Internal Medicine 05/10/21 documented as of this encounter
--- OUTSIDE RECORDS SUMMARY | 2025-06-01 09:30 | XMS_ITS | Clinical Summary ---
Author Organization [facility] Address Critical access hospital [employer] [facility] [address] [place], [place] [phone] Phone Care Team Providers Care Migratory Farm Hand Name Role Phone Randy Lopez MD Primary Care Provider [phone] Allergies No known active allergies Medications norethindrone-et [...] years) (1 of 1 - PCV) 2022 RSV VACCINE (1 - Risk 50-74 years 1-dose series) 2022 ZOSTER VACCINES (1 of 2) 2022 [...] topic Medical Devices Not on file [place] [address] [address] [facility] [address] [facility] [address] [employer] [place] Care Teams Migratory Farm Hand Relationship Specialty Start Date End Date Randy Lopez MD [address] [place] [address] PCP - General Internal Medicine 02/01/19 Additional Source Comments The information contained in this document represents components of the legal health record. It is not the complete legal health record.[facility]
--- OUTSIDE RECORDS SUMMARY | 2025-06-01 09:30 | XMS_ITS | Clinical Summary ---
Author Organization [facility] Address [address] [address] Care Team Providers Care Airline Lounge Receptionist Name Role Phone Randy Lopez MD Primary Care Provider Allergies No known active allergies Medications Norethin-Eth [...] Influenza Vaccine (#1) 2025 Insurance Care Teams Airline Lounge Receptionist Relationship Specialty Start Date End Date Randy Lopez MD PCP - General Internal Medicine 05/10/21
== END 2025-06-01 09:12 | disposition home or self-care (01) ==
LOC: HO.HCS 08:42
PROVIDERS: Visit Provider Nurse Practitioner Family
DX: R07.89 Other chest pain (principal); I10 Essential (primary) hypertension; G47.33 Obstructive sleep apnea (adult) (pediatric); E66.01 Morbid (severe) obesity due to excess calories; Z82.49 Family history of ischemic heart disease and other diseases of the circulatory system
CPT/HCPCS: 99214

== ENCOUNTER → 2025-06-01 08:41 | Outpatient (BNVA) | payer OTHER, SELFPAY | PROVIDERS: Visit Provider Nurse Practitioner Family | DX: R07.89 Other chest pain (principal); I10 Essential (primary) hypertension; G47.33 Obstructive sleep apnea (adult) (pediatric); Z99.89 Dependence on other enabling machines and devices; E66.01 Morbid (severe) obesity due to excess calories; Z68.43 Body mass index [BMI] 50.0-59.9, adult; Z82.49 Family history of ischemic heart disease and other diseases of the circulatory system | CPT/HCPCS: 99212 ==

== ENCOUNTER 2025-08-01 09:41 | Outpatient (REF) | payer OTHER, SELFPAY ==
--- OUTSIDE RECORDS SUMMARY | 2025-08-01 08:00 | XMS_ITS | Encounter Summary ---
Author Organization [facility] Address [address] [place] [address] Care Team Providers Care Music Theory Teacher Name Role Phone Karen Graves MD Primary Care Provider [phone] Reason for Visit * Reason Comments Sleep Apnea Encounter Details Date Type Department Care Team ([facility] st Contact Info) Description 08/01/2025 8:00 AM EST Office Visit Pulmonology - [place] [address] [place] [phone] Selina Phan MD [address] [place] [phone] LOUANN on CPAP (Primary Dx) Social History Tobacco Use Types Packs/Day Years Used Date Smoking Tobacco: Never Smokeless Tobacco: Never Alcohol Use Standard Drinks/Week Comments Yes 0.8 [...] ed Within the last 3 months, ho marcy many times did you visit the emergency [...] care for your loved ones. For example, exceptional children's teacher or elderly care for an older adult? [...] Orientation Straight 11/08/2024 8: 11 AM EDT documented as of this encounter Last Filed Vital Signs Vital Sign Reading Time Taken Comments Blood Pressure 157/95 08/01/2025 8:12 AM EST Pulse 95 08/01/2025 8:12 AM EST Temperature 36.9 C (98.4 F) 08/01/2025 8:12 AM EST Respiratory Rate - - Oxygen Saturation - - Inhaled Oxygen Concentration - - Weight 147 kg (323 lb) 08/01/2025 8:12 AM EST Height - - Body Mass Index 52.93 11/24/2024 10:43 AM EDT documented in this encounter Progress Notes * Selina Phan MD - 08/01/2025 8:00 AM EST ADULT PULMONARY Followup CHIEF COMPLAINT : Sleep Apnea Last seen 07/05/2024 HISTORY OF PRESENT ILLNESS: Marcela Mock is a 55 y.o. old, Female h/o severe LOUANN, allergic rhinitis, borderline hypertension, hyperlipidemia, uterine fibroid, and ovarian cyst. Patient underwent home sleep study on 08/30/2016 AHI of 32, 91% obstructive, on AutoPap 4 to 20 cm of water. COVID vaccinations: Moderna. 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 No occupational chemical fume exposure. No tuberculosis asbestos exposure. FH: pGM pancreatic cancer. pGF w/ ca ? Type. Brother smoker w/ copd. [place] Sleepiness Scale Sitting and reading: Moderate chance of dozing Watching TV: Moderate chance of dozing Sitting, inactive in a public place (e.g. a theatre or a meeting): Would never doze As a passenger in a car for an hour without a break: Moderate chance of dozing Lying down to rest in the afternoon when circumstances permit: High chance of dozing Sitting and talking to someone: Would never doze Sitting quietly after a lunch without alcohol: Would never doze In a car, while stopped for a few minutes in traffic: Would never doze Total score: 9 Compliance study (07/25/2024 to 07/24/2025): Greater than 4-hour use 89%. AHI 1.1. [place] 9.3 cm H2O. 95th percentile 13.3 cm H2O. Maximum 15.8 cm H2O. I will mild leak. Since last seen: -Not been Hospitalized: REVIEW OF SYSTEMS: Review of Systems Constitutional: Negative for chills, decreased appetite, diaphoresis, fever, malaise/fatigue and night sweats. HENT: Negative for congestion. Cardiovascular: Negative for chest pain, dyspnea on exertion, irregular heartbeat and leg swelling. Respiratory: Positive for snoring. Negative for cough, hemoptysis, shortness of breath, sputum production and wheezing. Endocrine: Negative for cold intolerance and heat intolerance. Skin: Negative for rash. Gastrointestinal: Negative for abdominal pain, constipation, diarrhea and dysphagia. Genitourinary: Negative for dysuria. ALLERGIES: Current Allergies[1] ACTIVE MEDICATIONS: Medications Taking[2] PROVIDER ATTESTS THAT THE MEDICATION LIST WAS OBTAINED, REVIEWED AND UPDATED. PAST MEDICAL HISTORY: Patient Active Problem List Diagnosis Date Noted Primary hypertension 08/18/2023 Hyperlipidemia 03/21/2021 Elevated blood pressure reading 03/15/2021 Abnormal uterine bleeding (AUB) 04/10/2020 Obstructive sleep apnea 09/06/2016 Chronic cholecystitis with calculus 05/15/2016 Fibroids 02/17/2014 Ovarian cyst 10/22/2012 Morbid obesity ([facility] V24, [facility] V28) 10/29/2011 Allergic rhinitis 03/19/2006 Surgical History[3] Surgical History[4] FAMILY HISTORY: Family History[5] SOCIAL HISTORY Social History Socioeconomic History Marital status: Single Spouse name: Not on file Number of children: Not on file Years of education: Not on file Highest education level: Not on file Occupational History Not on file Tobacco Use Smoking status: Never Smokeless tobacco: Never Substance and Sexual Activity Alcohol use: Yes Alcohol/week: 0.8 - 1.7 standard drinks of alcohol Types: 1 - 2 Standard drinks or equivalent per week Comment: occ Drug use: Yes Types: Marijuana/Cannabis Comment: occ Sexual activity: Yes control/protection: Post-menopausal Comment: 2023 boyfriend x 15 years Other Topics Concern Not on file Social History Narrative Lives with BF X 10 yrs, has BF for 15 yrs Does not have any children Takes care of 87 yrs old brother, who lives with other siblings 2023: lives with BF, 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 IMMUNIZATION: Immunization History Administered Date(s) Administered Influenza Quadravalent, MDCK, 0.5ml, preservative free (Flucelvax) 6mo and older 08/12/2019, 09/20/2020, 04/16/2023 Influenza trivalent, with preservative (Fluzone; Afluria) 6mo and older 08/07/2022 Influenza, Unspecified 09/20/2020 Moderna SARS-CoV-2 COVID-19, mRNA, LNP-S, preservative free 11/21/2020, 12/22/2020, 07/13/2021, 08/07/2022, 06/12/2023, 04/03/2024 Td Tetanus diptheria (Tdvax) 7yo and older 12/09/2023 Tdap Tetanus diptheria acellular pertussis (Boostrix; Adacel) 7yo and older 10/20/2008, 09/15/2022 Zoster recombinant (Shingrix) 19yo and older 06/12/2023, 10/03/2023 PHYSICAL EXAM: Visit Vitals BP (!) 157/95 (BP Location: Right arm, Patient Position: Sitting, BP Cuff Size: Adult) Pulse 95 Temp 36.9 ??C (98.4 ??F) (Temporal) Wt 147 kg (323 lb) BMI 52.93 kg/m?? OB Status Postmenopausal Smoking Status Never BSA 2.44 m?? BP 138/95 Physical Exam Constitutional: General: She is not in acute distress. Appearance: Normal appearance. She is obese. She is not ill-appearing. HENT: Head: Normocephalic and atraumatic. Nose: Nose normal. No congestion or rhinorrhea. Mouth/Throat: Mouth: Mucous membranes are moist. Pharynx: No oropharyngeal exudate or posterior oropharyngeal erythema. Comments: Mallampati 3 Eyes: Pupils: Pupils are equal, round, and reactive to light. Cardiovascular: Rate and Rhythm: Normal rate and regular rhythm. Pulses: Normal pulses. Heart sounds: No murmur heard. Pulmonary: Effort: Pulmonary effort is normal. No respiratory distress. Breath sounds: Normal breath sounds. No stridor. No wheezing, rhonchi or rales. Abdominal: General: Bowel sounds are normal. Palpations: Abdomen is soft. Tenderness: There is no abdominal tenderness. Musculoskeletal: Right lower leg: No edema. Left lower leg: No edema. Neurological: Mental Status: She is alert. Diagnostic: CURRENTS ICD-10 PULMONARY DIAGNOSIS 1. LOUANN on CPAP ASSESSMENT/PLAN: 1. LOUANN on cpap -Pathophysiology, diagnostic, and various treatment options regarding sleep apnea (LOUANN/CSA/mixed apnea/OHS) were discussed. Risks and benefits of CPAP/Bipap/iVaps use, along with risks of nontreatment were discussed. Patient agreed not to drive or operate heavy machinery if he/she should feel sleepy. 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 The medical and financial implications of poor compliance with NIPPV were discussed. All issuesregarding financial aspects of NIPPV to be addressed w/ DME vendor, and health insurance company. All questions were answered. -Continue w/ autopap 5 to 20 cm H2O. -Unremarkable TSH 06/14/24. 2. Hypertension: -Patient agreed to keep BP log and address issue with PCP. Patient want to be seen in one year. -Follow up with Karen Graves MD for the other co-morbilities. RETURN TO THE NEXT VISIT: Based on physical exam, symptomatology, tests requested and baseline pulmonary evaluation/disease, I instructed the patient to come back to see me in 1 year for reevaluation after the test has been done or earlier if the patient needed. Thanks Karen Graves MD for allowing me to have the opportunity to assist in the care of this patient. This chart was generated by the [employer] EMR system and [employer] speech recognition software and may contain inherent errors or omissions not intended by the user. Grammatical errors, random word insertions, deletions, pronoun errors and incomplete sentences are occasional consequences of this technologydue to software limitations. Not all errors are caught or corrected. If there are questions or concerns about the content of this note or information contained within the body of this dictation they should be addressed directly with the author for clarification. @ELECSIG@ [1] No Known Allergies [2] Outpatient Medications Marked as Taking for the 08/01/25 encounter (Office Visit) with Selina Phan MD Medication Sig Dispense Refill cyclobenzaprine (FLEXERIL) 5 mg tablet Take 1 tablet (5 mg total) by mouth 3 (three) times a day ifneeded for muscle spasms. 30 tablet 2 diclofenac (VOLTAREN) 1 % topical gel Apply 4 g topically 2 times daily. diphenhydrAMINE (BENADRYL) 25 mg tablet Take 25 mg by mouth daily. ergocalciferol (VITAMIN D-2) 1,250 mcg (50,000 unit) capsule Take 1 capsule (50,000 Units total) bymouth 1 (one) time per week. 4 capsule 11 lisinopril (PRINIVIL,ZESTRIL) 40 mg tablet Take 1 tablet (40 mg total) by mouth 1 (one) time each day. 30 each 5 nystatin (MYCOSTATIN) ointment Apply to groin rash 2-3 times a day for 1 weeks sodium,potassium,mag sulfates (Suprep Bowel Prep Kit) 17.5-3.13-1.6 gram recon soln bowel prep kit oral solution Take 177ML by mouth for 2 doses. SEE INSTRUCTIONS PROVIDED BY OFFICE. 1 kit 0 UNABLE TO FIND CPAP Historical (HISTORICAL CPAP) Inhale into the lungs. Life supply-pressure 4-20 [3] Past Surgical History: Procedure Laterality Date CHOLECYSTECTOMY 2016 PROCEDURE: HISTORICAL CHOLECYSTECTOMY [4] Past Surgical History: Procedure Laterality Date CHOLECYSTECTOMY 2016 PROCEDURE: HISTORICAL CHOLECYSTECTOMY [5] Family History Problem Relation Name Age of Onset Arthritis Mother Other (Other: atrial fib) Mother Heart attack Father age 50 cadiac Hypertension Sister Hypertension Brother Diabetes Brother Hypertension Brother Hyperlipidemia Brother Colon cancer Maternal Grandfather Other (Other: pancreatic cancer) Paternal Grandmother Breast cancer Other p aunt 58ish Paunt and cousin Ovarian cancer Neg Hx Uterine cancer Neg Hx documented in this encounter Plan of Treatment Upcoming Encounters Date Type Department Care Team (Late st Contact Info) Description 08/22/2025 11:30 AM EST Consult Bariatric Surgery - [place] [address] [facility] [address] [place] [phone] Melanie Lu PA [address] [place] [phone] 08/01/2026 8:00 AM EST Office Visit Pulmonology - [place] [address] [facility] [address] [place] [phone] Selina Phan MD [address] [place] [phone] documented as of this encounter Visit Diagnoses Diagnosis LOUANN on CPAP- Primary documented in this encounter Additional Health Concerns Assessment Noted Time PHQ-9 Depression Total Score: 0 03/28/20 25 5:12 PM EDT documented as of this encounter Care Teams Music Theory Teacher Relationship Specialty Start Date End Date Karen Graves MD [address] [place] [phone] PCP - General Internal Medicine 06/08/24 documented as of this encounter
[2025-08-01 11:55] LABS: Cholesterol 225 mg/dL (<200); HDL Cholesterol 66 mg/dL (>40); Triglycerides 92 mg/dL (<150)
--- OUTSIDE RECORDS SUMMARY | 2025-08-01 12:29 | XMS_ITS | Clinical Summary ---
Author Organization [facility] Address [facility] [address] [place], [place] [phone] Phone Care Team Providers Care Bundle Shaker Name Role Phone Randy Lopez MD Primary Care Provider [phone] Allergies No known active allergies Medications norethindrone-et [...] topic Medical Devices Not on file [place] [place] [address] [facility] [facility] [place] [place] [address] [facility] [place] [address] [place] [address] [employer] [place] Care Teams Bundle Shaker Relationship Specialty Start Date End Date Randy Lopez MD [address] [place] [address] PCP - General Internal Medicine 02/01/19 Additional Source Comments The information contained in this document represents components of the legal health record. It is not the complete legal health record.[facility]
--- OUTSIDE RECORDS SUMMARY | 2025-08-01 12:29 | XMS_ITS | Clinical Summary ---
Author Organization [facility] Facility Address [address] [address] Care Team Providers Care Director Of Accounts Payable Name Role Phone Randy Lopez MD Primary Care Provider [phone] Allergies No known active allergies Medications Norethin-Eth [...] Influenza Vaccine (#1) 2025 Insurance Care Teams Director Of Accounts Payable Relationship Specialty Start Date End Date Randy Lopez MD PCP - General Internal Medicine 05/10/21
--- OUTSIDE RECORDS SUMMARY | 2025-08-01 12:29 | XMS_ITS | Encounter Summary ---
Author Organization [facility] Address [address] [place] [address] Care Team Providers Care Life Sciences Director Name Role Phone Karen Graves MD Primary Care Provider [phone] Encounter Details Date Type Department Care Team ([facility] st Contact Info) Description 08/01/2025 Telephone Pulmonology - [place] [address] [facility] [address] [place] [address] Peggy Lloyd MA Social History Tobacco Use Types Packs/Day Years [...] for your loved ones. For example, child and adolescent psychiatrist or elderly care for an [...] AM EDT documented as of this encounter Progress Notes * Peggy Lloyd MA - 08/01/2025 10:39 AM EST Notes and order faxed to [facility] [employer] documented in this encounter Plan of Treatment Upcoming Encounters Date Type Department Care Team (Late st Contact Info) Description 08/22/2025 11:30 AM EST Consult Bariatric Surgery - [address] [place] [phone] Melanie Lu PA [address] [place] [phone] 08/01/2026 8:00 AM EST Office Visit Pulmonology - [place] [address] [facility] [address] [place] [phone] Selina Phan MD [address] [place] [phone] documented as of this encounter Visit Diagnoses Not on filedocumented in this encounter Additional Health Concerns Assessment Noted Time PHQ-9 Depression Total Score: 0 03/28/20 25 5:12 PM EDT documented as of this encounter Care Teams Life Sciences Director Relationship Specialty Start Date End Date Karen Graves MD [address] [facility] [address] [place] [address] PCP - General Internal Medicine 06/08/24 documented as of this encounter
--- OUTSIDE RECORDS SUMMARY | 2025-08-01 12:29 | XMS_ITS | Encounter Summary ---
Author Organization [facility] Address [address] [facility] [address] [place] [address] Phone Care Team Providers Care Cook Fish And Chips Name Role Phone Randy Lopez MD Primary Care Provider [phone] Encounter Details Date Type Department Care Team (Late st Contact Info) Description 08/22/2021 Documentation Only [facility] [address] [facility] [address] [place] [phone] Juan Carlos Hernandez, DO [address] [place] [id number] Social History Tobacco Use Types Packs/Day Years [...] on filedocumented in this encounter Care Teams Cook Fish And Chips Relationship Specialty Start Date End Date Randy Lopez MD PCP - General Internal Medicine 05/10/21 documented as of this encounter
--- OUTSIDE RECORDS SUMMARY | 2025-08-01 12:29 | XMS_ITS | Clinical Summary ---
Author Organization 175 [facility] Address [address] [place] [address] Phone Care Team Providers Care Transit Mechanic Name Role Phone aKren Graves MD Primary Care Provider [phone] Allergies No known active allergies Medications diclofenac [...] into the lungs. Life supply-pressure 4-20 Active sodium,potassiu m,mag sulfates (Suprep Bowel Prep Kit) 17.5-3.13-1.6 gram recon soln bowel prep kit oral solution Take 177ML by mouth for 2 doses. SEE INSTRUCTIONS PROVIDED BY OFFICE. 1 kit 5 Active cyclobenzaprine (FLEXERIL) 5 mg tablet Take 1 tablet (5 mg total) by mouth 3 (three) times a day if needed for muscle spasms. 30 tablet 2 5 11/25/19 26 Active ergocalciferol (VITAMIN D-2) 1,250 mcg (50,000 unit) capsule Take 1 capsule (50,000 Units total) by mouth 1 (one) time per week. 4 capsule 11 5 06/15/20 26 Active lisinopril (PRINIVIL,ZESTR IL) 40 mg tablet Take 1 tablet (40 mg total) by mouth 1 (one) time each day. 30 each 5 5 12/13/19 26 Active Active Problems Problem Noted Date [...] Fibroids 02/17/2014 Ovarian cyst 10/22/2012 Morbid obesity 10/29/2011 Allergic rhinitis 03/19/2006 Encounters Date Type Department Care Team Description 08/01/2025 8:00 AM EST Office Visit Pulmonology - [facility] [address] [phone] Selina Phan MD LOUANN on CPAP (Primary Dx) 08/01/2025 Telephone Pulmonology [facility] [address] [phone] Peggy Lloyd [place] 07/05/2025 Telephone Pulmonology [facility] [address] [phone] Neva Randle [place] 06/23/2025 Telephone Pulmonology [facility] [address] [phone] Selina Phan MD from Last 3 Months Immunizations Immunization [...] Surgical History Surgery Date Site/Laterality Comments CHOLECYSTECTOMY 2016 PROCEDURE: HISTORICAL CHOLECYSTECTOMY Medical History Medical History Date Comments Dysmenorrhea DX:Dysmenorrhea Morbid obesity ([facility]/HCC V24, [facility]/HCC V28) DX:Morbid obesity ([facility]) Gallstones 04/16/2016 DX:Gallstones Primary hypertension 08/18/2023 Obstructive [...] for your loved ones. For example, child day care provider or elderly care for an older adult? [...] F) 08/01/2025 8:12 AM EST Respiratory Rate 18 11/08/2024 10:26 AM EDT Oxygen Saturation 99% 03/29/2025 1:22 PM EDT Inhaled Oxygen Concentration - - Weight 147 kg (323 lb) 08/01/2025 8:12 AM EST Height 166.4 cm (5' 5.5 ) 11/24/2024 10:43 AM ED T Body Mass Index 52.93 11/24/2024 10:43 AM EDT Plan of Treatment Upcoming Encounters Date Type Department Care Team (Late st Contact Info) Description 08/22/2025 11:30 AM EST Consult Bariatric Surgery - [facility] 175 [facility] [address] [place] [phone] Melanie Lu PA [address] [place] [phone] 08/01/2026 8:00 AM EST Office Visit Pulmonology - [facility] 175 [facility] [address] [place] [phone] Selina Phan MD [address] [place] [phone] Health Maintenance Due Date Last Done Comments [...] is recommended in 1 year. Mammo Location: [facility], [address] [place] [address], [phone], . -------- FINAL REPORT -------- Dictated By: Clarisa Brennan Dictated Date: 12/01/2024 11:12 ET Assigned Physician: Clarisa Brennan Reviewed and Electronically Signed By: Clarisa Brennan Signed Date: 12/01/2024 11:15 ET Workstation ID: [id number] Transcribed By: Self Edit Transcribed Date: 12/01/2024 [...] is recommended in 1 year. Mammo Location: [facility], [address] [place] [address], [phone], . -------- FINAL REPORT -------- Dictated By: Clarisa Brennan Dictated Date: 12/01/2024 11:12 ET Assigned Physician: Clarisa Brennan Reviewed and Electronically Signed By: Clarisa Brennan Signed Date: 12/01/2024 11:15 ET Workstation ID: [id number] Transcribed By: Self Edit Transcribed Date: 12/01/2024 11:12 ET us Jen VILLANUEVA IMG BI PROCEDURES Final Resu lt * COLONOSCOPY Anesthesia - MAC; [facility] ENDOSCOPY (11/08/2024 10:05 AM EDT) Anatomical Region Laterality Modality Endoscopy 11/08/2024 9:36 AM EDT Impressions 11/08/2024 10:06 AM EDT - One 4 mm polyp in the cecum, removed with a cold snare. Resected and retrieved. - One 14 mm polyp in the transverse colon, removed using injection-lift and a hot snare. Resected and retrieved. Clips (MR conditional) were placed. Clip metallographer: [employer]. - Three 2 to 5 mm polyps in the sigmoid colon, removed with a cold snare. Resected and retrieved. - Internal hemorrhoids. - The examination was otherwise normal. Recommendation: - Discharge patient to home. - Await pathology results. - Repeat colonoscopy in 3 years for surveillance. Narrative 11/08/2024 10:06 AM EDT [facility] Patient Name: Denis Mock Procedure [...] verified by the physician, the nurse, the business banking officer and the application support technician in the pre-procedure area in the [...] clips were successfully placed (MR conditional). Clip metallographer: [employer]. There was no bleeding at the end [...] without abnormality. Procedure Code(s): --- Professional --- 67738, Colonoscopy, flexible; with removal of tumor(s), polyp(s), or other lesion(s) by snare technique 69471, Colonoscopy, flexible; with directed submucosal injection(s), any substance Diagnosis Code(s): --- Professional --- D12.0, Benign neoplasm of cecum D12.3, Benign neoplasm of transverse colon (hepatic flexure or splenic flexure) D12.5, Benign neoplasm of sigmoid colon CPT copyright 2020 [employer]. All rights reserved. The codes documented in this report are preliminary and upon kennel manager review may be revised to meet current compliance requirements. Esteban Ulloa MD 11/08/2024 10:06:45 AM This report has been signed electronically.Esteban Ulloa MD Number of Addenda: 0 Note Initiated On: 11/08/2024 9:36 AM Scope Withdrawal Time: 0 hours 16 minutes 59 seconds Scope In: 9:43:58 AM Scope Out: 10:02:39 AM Endoscopy Department at [facility] - [address] [place] [phone] Procedure Note Esteban Ulloa MD - 11/08/2024 [facility] Patient Name: Denis Mock Procedure [...] the physician, the nurse, theanesthetist and the application support technician in the pre-procedure area in the [...] twohemostatic clips were successfully placed (MR conditional).Clip metallographer: [employer]. There was nobleeding at the end of [...] without abnormality. Procedure Code(s): --- Professional --- 51240, Colonoscopy, flexible; with removal of tumor(s), polyp(s), or other lesion(s) by snare technique 55123, Colonoscopy, flexible; with directedsubmucosal injection(s), any substance Diagnosis Code(s): --- Professional --- D12.0, Benign neoplasm of cecum D12.3, Benign neoplasm of transverse colon (hepatic flexure or splenic flexure) D12.5, Benign neoplasm of sigmoid colon CPT copyright 2020 [employer]. All rights reserved. The codes documented in this report are preliminary and upon kennel manager reviewmay be revised to meet current compliance requirements. Esteban Ulloa MD 11/08/2024 10:06:45 AM This report has been signed electronically.Esteban Ulloa MD Number of Addenda: 0 Note Initiated On: 11/08/2024 9:36 AM Scope Withdrawal Time: 0 hours 16 minutes 59 seconds Scope In: 9:43:58 AM Scope Out: 10:02:39 AM Endoscopy Department at [facility] - [address] [place] [phone] IMPRESSION: - One 4 mm polyp in the cecum, removed with a cold snare. Resected and retrieved. - One 14 mm polyp in the transverse colon, removed using injection-lift and a hot snare. Resected and retrieved. Clips (MR conditional) were placed. Clip metallographer: Read[employer]. - Three 2 to 5 mm polyps [...] LAB CHEMISTRY METHOD 06/14/2024 4:15 PM EST [facility] Triglycerides 106 0 - 150 mg/dL LAB CHEMISTRY METHOD 06/14/2024 4:15 PM EST [facility] HDL 72 >=40 mg/dL LAB CHEMISTRY METHOD 06/14/2024 4:15 PM EST [facility] LDL Calculated 135(H) 0 - 100 mg/dL LAB CHEMISTRY METHOD 06/14/2024 4:[address] [facility] VLDL Cholesterol Nader 21.2 mg/dL LAB CHEMISTRY METHOD 06/14/2024 4:15 PM EST [facility] Non HDL Chol. (LDL+VLDL) 156(H) <145 mg/dL LAB CHEMISTRY METHOD 06/14/2024 4:15 PM EST [facility] Chol/HDL Ratio 3.2 0.0 - 4.4 LAB CHEMISTRY METHOD 06/14/2024 4:[address] [facility] Blood Venous blood specimen / Unknown Venipuncture / Unknown 06/14/2024 9:44 AM EST 06/14/2024 9:44 AM EST Karen Graves MD LAB BLOOD ORDERABLES Final Resul t [facility] [address] [place] [address], * (ABNORMAL) Comprehensive metabolic panel (06/14/2024 9:44 AM EST) Sodium 140 133 - 145 mmol/L LAB CHEMISTRY METHOD 06/14/2024 4:[address] [facility] Potassium 4.1 3.5 - 5.5 mmol/L LAB CHEMISTRY METHOD 06/14/2024 4:[address] [facility] Chloride 110 96 - 110 mmol/L LAB CHEMISTRY METHOD 06/14/2024 4:[address] [facility] CO2 23 21 - 32 mmol/L LAB CHEMISTRY METHOD 06/14/2024 4:[address] [facility] Anion Gap 7 3 - 11 LAB CHEMISTRY METHOD 06/14/2024 4:[address] [facility] Glucose 102(H) 70 - 100 mg/dL LAB CHEMISTRY METHOD 06/14/2024 4:[address] [facility] BUN 14 5 - 25 mg/dL LAB CHEMISTRY METHOD 06/14/2024 4:[address] [facility] Creatinine 0.67 0.50 - 1.10 mg/dL LAB CHEMISTRY METHOD 06/14/2024 4:[address] [facility] eGFR 105 >=60 mL/min/1. 73m2 LAB CHEMISTRY METHOD 06/14/2024 4:[address] [facility] Comment:Calculation based on the Chronic Kidney Disease Epidemiology Collaboration (CKD-EPI) equation refit without adjustment for race. BUN/Creatinine Ratio 20.9 LAB CHEMISTRY METHOD 06/14/2024 4:[address] [facility] Calcium 9.5 8.5 - 10.5 mg/dL LAB CHEMISTRY METHOD 06/14/2024 4:[address] [facility] AST (SGOT) 30 10 - 42 unit/L LAB CHEMISTRY METHOD 06/14/2024 4:[address] [facility] ALT (SGPT) 50 10 - 60 unit/L LAB CHEMISTRY METHOD 06/14/2024 4:[address] [facility] Alkaline Phosphatase 81 42 - 121 unit/L LAB CHEMISTRY METHOD 06/14/2024 4:[address] [facility] Total Protein 7.3 6.0 - 8.0 g/dL LAB CHEMISTRY METHOD 06/14/2024 4:[address] [facility] Albumin 4.1 3.2 - 5.0 g/dL LAB CHEMISTRY METHOD 06/14/2024 4:[address] [facility] Total Bilirubin 0.5 0.0 - 1.4 mg/dL LAB CHEMISTRY METHOD 06/14/2024 4:[address] [facility] Blood Venous blood specimen / Unknown Venipuncture / Unknown 06/14/2024 9:44 AM EST 06/14/2024 9:44 AM EST Karen Graves MD LAB BLOOD ORDERABLES Final Resul t [facility] [address] [place] [address], * Depression Screening (07/02/2023) Depression Screening Abstracted Historical Provider HEALTH MAINTENANCE Final Result * Hepatitis C Screening (09/15/2022) Hepatitis C Screening Abstracted Historical Provider HEALTH MAINTENANCE Final Result * Cervical Cancer Screening: HPV (03/01/2021) Pathologist [facility] Cervical Cancer Screening: HPV Negative, Abstracted Historical Provider HEALTH MAINTENANCE Final Result from Last 3 Months or Most Recently Relevant to Health Maintenance Insurance [facility] Phase [employer] PLANS Care Teams Transit Mechanic Relationship Specialty Start Date End Date Karen Graves MD 175 [facility] [address] [place] [phone] PCP - General Internal Medicine 06/08/24
== END 2025-08-01 09:42 ==
LOC: HO.LAB 09:41
PROVIDERS: Visit Provider Internal Medicine Cardiovascular Disease
DX: I10 Essential (primary) hypertension (principal); Z82.49 Family history of ischemic heart disease and other diseases of the circulatory system
CPT/HCPCS: 36415; 80061